=== PATIENT | female | born 1985 | race Caucasian/White ===

== ENCOUNTER 2020-08-08 08:36 | Outpatient (CLI) | payer OTHER, SELFPAY ==
--- NOTE | ~2020-08-08 | MM_ITS ---
EXAMINATION: MM screening dusty BI w nubia HISTORY: Screening mammogram TECHNIQUE: Craniocaudal and mediolateral oblique 3-D tomosynthesis images were obtained and synthetic 2-D images were generated. CAD analysis was submitted and interpreted. COMPARISON: No prior mammogram is available for comparison at this institution. BREAST PARENCHYMAL COMPOSITION: There are scattered areas of fibroglandular density. FINDINGS: There are right breast asymmetries including a cluster of opacities measuring up to 12 mm i n the posterior aspect of the lower inner quadrant of the right breast. There is an asymmetric approx imately 6 mm circumscribed opacity in the right axillary area. There is a 3 mm circumscribed density in the upper outer quadrant of the right breast at mid depth. Diagnostic right mammogram and right breast ultrasound examination are recommended. There is asymmetry in the posterior inner left breast. Diagnostic left mammogram is recommended, with ultrasound if required. IMPRESSION: 1. Bilateral mammographic asymmetries 2. Bilateral diagnostic mammography and right breast ultrasound examination are recommended, with lef t breast ultrasound if required BI-RADS Category 0: Incomplete: Needs additional imaging evaluation. Reviewed, dictated and finalized at location A. IMPRESSION: 1. Bilateral mammographic asymmetries 2. Bilateral diagnostic mammography and right breast ultrasound examination are recommended, with left breast ultrasound if required BI-RADS Category 0: Incomplete: Needs additional imaging evaluation.
== END 2020-08-08 08:37 | disposition home or self-care (01) ==
PROVIDERS: Visit Provider Surgery Plastic and Reconstructive Surgery
DX: Z12.31 Encounter for screening mammogram for malignant neoplasm of breast (principal); R92.8 Other abnormal and inconclusive findings on diagnostic imaging of breast
CPT/HCPCS: 77063; 77067

== ENCOUNTER 2020-08-10 10:32 | Outpatient (CLI) | payer OTHER, SELFPAY ==
--- NOTE | ~2020-08-10 | MMUS_ITS ---
EXAMINATION: MM diagnostic mammo BI, US breast LT limited, US breast RT complete HISTORY: Bilateral mammographic asymmetries reported on 08/08/2020 screening mammogram TECHNIQUE: Additional 3-D tomosynthesis images of both breasts were performed and synthetic 2-D image s were generated. CAD analysis was submitted and interpreted. High resolution right complete and left upper inner and lower inner quadrant breast ultrasound was performed. COMPARISON: 08/08/2020 bilateral digital screening mammogram FINDINGS: MAMMOGRAPHIC FINDINGS: No suspicious reproducible mass or architectural distortion is detected. ULTRASOUND: Right breast: There is an approximately 2.2 x 9 mm tubular sonolucency and adjacent 2.2 x 4.8 mm cyst at 3:00 11 cm from the nipple. No suspicious solid lesion or shadowing or suspicious vascularity of the right breast is detected. Left breast: No suspicious mass or shadowing is detected. IMPRESSION: 1. No mammographic evidence of malignancy 2. Routine mammographic screening is recommended. BI-RADS Category 2: Benign finding(s). Reviewed, dictated and finalized at location A. IMPRESSION: 1. No mammographic evidence of malignancy 2. Routine mammographic screening is recommended. BI-RADS Category 2: Benign finding(s). IMPRESSION: 1. No mammographic evidence of malignancy 2. Routine mammographic screening is recommended. BI-RADS Category 2: Benign finding(s).
== END 2020-08-10 10:33 | disposition home or self-care (01) ==
PROVIDERS: Visit Provider Surgery Plastic and Reconstructive Surgery
DX: R92.8 Other abnormal and inconclusive findings on diagnostic imaging of breast (principal)
CPT/HCPCS: 76641; 76642; 77066

== ENCOUNTER 2020-08-15 01:41 | Outpatient (CLI) | payer OTHER, SELFPAY ==
[2020-08-15 19:05] LABS: SARS-CoV-2 RNA PCR Negative
== END 2020-08-15 01:42 | disposition home or self-care (01) ==
LOC: ANHCOVIDDT 01:42
PROVIDERS: Visit Provider Surgery Plastic and Reconstructive Surgery
DX: Z01.812 Encounter for preprocedural laboratory examination (principal); Z20.828 Contact with and (suspected) exposure to other viral communicable diseases
CPT/HCPCS: 87635; C9803; U0003

== ENCOUNTER 2020-08-17 00:29 | Day surgery (SDC) | payer OTHER, SELFPAY ==
[2020-08-03 13:30] VITALS: BMI 32.4
--- NOTE | 2020-08-16 10:33 | WPDANESEPPF ---
Anes - Initial Pre Proc Eval Procedure: Operation Date: 08/17/20 07:30 Proposed Procedures p Bilateral Breast Reduction - Herbert Black MD Date/Time: 08/16/20 10:33 Surgeon: Herbert Black MD Pre Op Diagnosis: Macromastia Patient Data Age: 35 Gender: F Height: 1.65 m Weight: 88.45 kg Allergies Allergy/AdvReac Type Severity Reaction Status Date / Time Sulfa (Sulfonamide Allergy Unknown Rash Verified 08/03/20 13:31 Antibiotics) morphine AdvReac Unknown Itching Verified 08/03/20 13:31 Home Medications Medication Instructions Recorded Confirmed Type fluoxetine 40 mg capsule 40 mg PO DAILY cap 06/05/20 08/03/20 History valacyclovir 500 mg tablet 500 mg PO DAILY tablet 06/05/20 08/03/20 History docusate sodium 100 mg capsule 100 mg PO BID #14 cap 08/02/20 08/03/20 Rx hydrocodone 5 mg-acetaminophen 325 1 tablet PO Q6H PRN #15 tablet 08/02/20 08/03/20 Rx mg tablet ondansetron HCl 4 mg tablet 4 mg PO Q6H PRN #30 tablet 08/02/20 08/03/20 Rx cholecalciferol (vitamin D3) 50 mcg PO DAILY 08/03/20 08/03/20 History [Vitamin D3] Patient hx anesthesia problems: none Family hx anesthesia problems: none PMFSH Past Medical History Medical History (Updated 08/16/20 @ 10:34 by Bala Cochran MD) Anxiety Depression Lung collapse 2010 Obesity Surgical History Surgical History History of appendectomy 2012 Family History Family History Mother Family history of thyroid disease Family history of arthritis Grandparent Family history of blood dyscrasia Hypertension Acute myocardial infarction Cerebrovascular accident Family history of arthritis Family history of Parkinson's disease Family history of congestive heart failure Father Family history of mental disorder Depression Hypertension Family history of arthritis Social History Social History Smoking status: Never smoker Smoking end date: 10/20/08 Alcohol intake: current Spiritual care concerns: No Anes - Eval Final PreProcedure Day of Procedure 08/16/20 10:33 Patient weight: obese Heart: regular rate and rhythm Lungs: clear to auscultation and normal air movement Airway: Mallampati scale class II Neurological: alert and oriented Last oral intake: >/= 8 hours ASA classification: II Emergent: no Anesthetic plan: proceed Anesthesia type and monitoring: general ETT Informed Consent: The patient's anesthetic plan and its attendant risks and benefits were discussed with the patient/family/POA. Questions were solicited and answers provided to the satisfaction of the patient/family/POA.
[2020-08-17] VITALS (10 sets, daily range): BP systolic 112–138; BP diastolic 64–77; PULSE 58–110; RESP 8–20; TEMP 35.9–36.2; O2SAT 96–100
[2020-08-17 06:36] LABS: Urine Cotinine NEGATIVE
[2020-08-17] MEDS: LACTATED RINGERS 1,000 ML 30 ML IV CONT ×2 (06:45→10:09)
--- NOTE | 2020-08-17 06:59 | WPDHPUPDATE1 ---
History and Physical Update Update Date/Time: 08/17/20 06:59 History and Physical has been reviewed, including an updated exam of the patient. There are NO changes in the patient's condition. Risks, benefits, and alternatives have been discussed and questions answered. Patient agrees to proceed with procedure.
[2020-08-17] MEDS: ceFAZolin 2 GM/D5W 50 ML 2 GM/50 ML BAG IVPB (07:26)
--- NOTE | 2020-08-17 09:59 | PM.PROC ---
Procedure Note - Detailed Date of procedure: 08/17/20 Pre-op diagnosis: Macromastia Post-op diagnosis: same Procedure performed: Bilateral breast reduction Description of procedure: She is here today for bilateral breast reduction. Previously and again today the risks, benefits, alternatives were discussed in extensive detail. I wanted her to be very realistic about the risks involved as well as expectations. We discussed aftercare and what to monitor for. She understands we can never guarantee final breast size and there will always be asymmetry. I was very upfront and honest about the risks of sensation change and even nipple loss (). Made sure answered all of her questions to her satisfaction today and consent was obtained. She was marked in the preoperative holding area with their verification. The patient was taken to the operating room placed supine on the operating table. Anesthesia was provided by anesthesiology. She was prepped and draped in a standard sterile fashion. A surgical time-out was taken. Stab incisions were made and I tumessed with a tumescent solution. I marked out the nipple-areolar complex at 42 mm. I then de-epithelialized the pedicle. The pedicle was well left well more than 2 cm in thickness. I then removed the inferior portion of the breast as well as the central keel to get shape based on preoperative planning. At this point copiously irrigated with saline solution and verified a strict hemostasis. I reapproximated the pillars using a 2-0 PDS as well as along the IMF. I tailor tacked the breast into place with valerie. She was placed in a sitting position. I verified the nipple-areolar complex position based on preoperative markings, intraoperative measurements, and observation which were in full agreement. This nipple-areolar complex was marked at 42 mm in size. I then placed supine and de-epithelialized this. Nipple-areolar complex was inset with 3-0 Monocryl. I closed the vertical incision with 3-0 Monocryl in the IMF with 3-0 stratafix. Then everything was closed using a running subcuticular 4-0 Monocryl followed by Steri-Strips. A dressing was placed followed by surgical bra. Patient was awoke and taken to PACU without difficulty. All instrument sponge counts were correct at the end of the case. Anesthesia: GLMA Surgeon: Herbert Black MD Estimated blood loss (mL): 20 Drains: No Packing: No Pathology: yes (Bilateral breast tissue) Complications: No immediate complications Condition: stable Disposition: PACU Findings: Inverted T Superior medial pedicle Tissue removed: Right - 1024.1 grams Left - 1029 grams
[2020-08-17] MEDS: ONDANSETRON INJ 4 MG/2 ML VIAL IV PUSH (10:18)
[2020-08-17] MEDS: diphenhydrAMINE HCl INJ 50 MG/ML VIAL 12.5 MG IV PUSH (10:32)
--- NOTE | 2020-08-17 10:35 | SUR.PHASEI ---
1033; DR MEEHAN AT BEDSIDE. PT C/O NAUSEA. SCOPE PATCH AND HALDOL ORDERED.
[2020-08-17] MEDS: SCOPOLAMINE 1.5 MG PATCH TRANSDERM (10:37)
[2020-08-17] MEDS: HALOPERIDOL LACTATE 5 MG/ML VIAL 1 MG IV PUSH (10:47)
--- NOTE | 2020-08-17 10:49 | SUR.PHASEI ---
1035; PT DROWSY, SAO2 DROPS BRIEFLY TO 85% ON ROOM AIR. RESP EVEN UNLABORED. O2 2L NC APPLIED. PT STILL C/O EXTREME NAUSEA.
--- NOTE | 2020-08-17 10:58 | SUR.PHASEI ---
PT AWAKE AND ALERT. STATES PAIN MODERATE AND TOLERABLE AT 5/10. STATES NAUSEA IS IMPROVING. SHE DOES NOT WANT ANY PAIN MEDICINE AT THIS TIME DUE TO CONCERN FOR NAUSEA. PT TALKATIVE AND EATING ICE CHIPS SPARINGLY.
--- NOTE | 2020-08-17 11:03 | SUR.PHASEI ---
REPORT GIVEN TO AMBIKA SOTO RN
--- NOTE | 2020-08-17 11:15 | SUR.PHASEI ---
O2 DISCONTINUED, WILL CONTINUE TO MONITOR PT.
[2020-08-17] MEDS: oxyCODONE HCL (*CRX) 5 MG TAB IR PO (12:03)
--- NOTE | 2020-08-17 13:43 | SUR.PHASEII ---
[address] meraz about small amount bloody drainage to surgical bra at nipple site,states may place gauze to site and change surgical bra.
== END 2020-08-17 13:09 | disposition home or self-care (01) ==
PROVIDERS: PCP Internal Medicine; Visit Provider Surgery Plastic and Reconstructive Surgery
PROC: 0HBV0ZZ Excision of Bilateral Breast, Open Approach (ICD-10-PCS; CPT 19318; principal; 2020-08-17 07:30)
DX: N62 Hypertrophy of breast (principal); N60.32 Fibrosclerosis of left breast; N60.31 Fibrosclerosis of right breast; N60.82 Other benign mammary dysplasias of left breast; N60.81 Other benign mammary dysplasias of right breast; L82.1 Other seborrheic keratosis; F41.8 Other specified anxiety disorders; E66.9 Obesity, unspecified; Z68.34 Body mass index [BMI] 34.0-34.9, adult
CPT/HCPCS: 19318; 80307; 88305; A9270; J0171; J0690; J1200; J1630; J2250; J2405; J2704; J3010; J7120

== ENCOUNTER 2020-11-24 16:07 | Emergency (ER) | payer OTHER, SELFPAY ==
--- NOTE | 2020-11-24 16:19 | ED.WOUNDLAC ---
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 Patient states she was lifting a ceramic pot that broke. She complains of mild pain and bleeding from a ~2 cm laceration of the ring finger that is longitudinal & parallel beside the lateral/radial aspect of the fingernail. No numbness, foreign body, nailbed involvement , weakness, decreased range of motion or strength; symptoms are mild better with rest elevation and compression Related Data Home Medications Medication Instructions Recorded Confirmed fluoxetine 40 mg capsule 40 mg PO DAILY cap 06/05/20 08/17/20 valacyclovir 500 mg tablet 500 mg PO DAILY tablet 06/05/20 08/17/20 cholecalciferol (vitamin D3) 50 mcg PO DAILY 08/03/20 08/17/20 [Vitamin D3] Allergies Allergy/AdvReac Type Severity Reaction Status Date / Time Sulfa (Sulfonamide Allergy Unknown Rash Verified 09/25/20 11:03 Antibiotics) morphine AdvReac Unknown Itching Verified 09/25/20 11:03 Review of Systems Review of Systems: Narrative: General/Constitutional: No weight loss,fever Eyes: N0: Redness,discharge Ears/Nose/Throat: No: Epistaxis,ear discharge Respiratory: Denies: Hemoptysis Skin: No Lumps, eruption Neurologic: No Focal Weakness,Sz Hematologic: Denies: Petechiae/Purpura Psychiatric: No: Suicida ideationl All Other Systems: Reviewed and Negative [facility] Past Medical History Medical History Anxiety Depression Lung collapse 2011 Obesity Surgical History Surgical History History of appendectomy 2012 Family History Family History Mother Family history of thyroid disease Family history of arthritis Grandparent Family history of blood dyscrasia Hypertension Acute myocardial infarction Cerebrovascular accident Family history of arthritis Family history of Parkinson's disease Family history of congestive heart failure Father Family history of mental disorder Depression Hypertension Family history of arthritis Social History Social History Smoking status: Never smoker Smoking end date: 10/20/08 Alcohol intake: current Spiritual care concerns: No Comments At time of signature, agree with nursing past medical, surgical, social and family history. There is no relevant family history pertinent to the presenting complaint Exam Narrative: Exam Narrative: General Appearance: Well appearing, conjunctiva clear Mouth/Throat: Normal appearing, Normal lips, Supple Respiratory: Airway patent, No respiratory distress MS-finger: Normal strength (mostly intact, limited flexion/extension by pain), Tenderness (radially/laterally, with mild decreased ROM), no swelling , Other (no anterior drawer, no collateral laxity, ) Skin: 2.25 cm oblique/almost linear, superficial dermal laceration paralleling the fingernail ;warm, Dry, Normal color Neurological: Sensation intact to light touch, A&O x3, normal affect Course Vital Signs Vital signs: Vital Signs Temperature 97.8 F 11/24/20 16:20 Pulse Rate 76 11/24/20 16:20 Respiratory Rate 16 11/24/20 16:20 Blood Pressure 122/72 11/24/20 16:20 Pulse Oximetry 100 11/24/20 16:20 Temperature 97.8 F 11/24/20 16:20 Pulse Rate 76 11/24/20 16:20 Respiratory Rate 16 11/24/20 16:20 Blood Pressure 122/72 11/24/20 16:20 Pulse Oximetry 100 11/24/20 16:20 Procedures Laceration Laceration 1: Date: 11/24/20 Site: hand (Left ring finger) Side (If applicable): left Size (cm): 2.25
[2020-11-24 16:20] VITALS: BP 122/72; PULSE 76; RESP 16; TEMP 36.6; O2SAT 100
== END 2020-11-24 17:07 | disposition home or self-care (01) ==
PROVIDERS: Emergency Provider Emergency Medicine; PCP Internal Medicine
DX: S61.215A Laceration without foreign body of left ring finger without damage to nail, initial encounter (principal); W45.8XXA Other foreign body or object entering through skin, initial encounter; F41.9 Anxiety disorder, unspecified; F32.9 Major depressive disorder, single episode, unspecified
CPT/HCPCS: 12001; 99213; G0463

== ENCOUNTER 2022-12-16 08:38 | Emergency (ER) | payer OTHER, SELFPAY ==
--- NOTE | 2022-12-16 08:52 | ED.URI ---
HPI - URI/Sore Throat General Chief Complaint: Upper Respiratory Infection Stated Complaint: sore throat, ear pain Time Seen by Provider: 12/16/22 09:44 Source: patient and RN notes reviewed Mode of arrival: ambulatory Limitations: no limitations History of Present Illness HPI Narrative: 37-year-old female presents concern for sore throat ear pain. Reports sore throat started on Friday, ear pain started yesterday. She reports taking Mucinex without relief. She denies nasal congestion, rhinorrhea, fever, aches, chills, sweats. She denies known sick contacts. MD elicited complaint: sore throat Related Data Home Medications Medication Instructions Recorded Confirmed valacyclovir 500 mg tablet 500 mg PO PRN PRN Skin Irritation 06/05/20 12/16/22 naltrexone 50 mg tablet 1.5 mg PO HS 12/16/22 12/16/22 Allergies Allergy/AdvReac Type Severity Reaction Status Date / Time Sulfa (Sulfonamide Allergy Unknown Rash Verified 12/16/22 09:12 Antibiotics) morphine AdvReac Unknown Itching Verified 12/16/22 09:12 Review of Systems Review of Systems: CONSTITUTIONAL: Denies malaise, chills, sweats, or fever. EYES: Denies visual changes, redness, or discharge. ENT: Denies rhinorrhea, congestion, sinus pain. Reports otalgia and sore throat. CARDIOVASCULAR: Denies chest pain, palpitations, or edema. RESPIRATORY: Denies cough. Denies dyspnea. GASTROINTESTINAL: Denies abdominal pain, nausea, vomiting, diarrhea SKIN: Denies rash or itching. MUSCULOSKELETAL: Denies myalgia. NEUROLOGIC: Denies headache. All systems reviewed & are unremarkable except as noted in HPI and below PMFSH Past Medical History Medical History Anxiety Depression Lung collapse 2010 Obesity Surgical History Surgical History History of appendectomy 2012 Family History Family History Mother Family history of thyroid disease Family history of arthritis Grandparent Family history of blood dyscrasia Hypertension Acute myocardial infarction Cerebrovascular accident Family history of arthritis Family history of Parkinson's disease Family history of congestive heart failure Father Family history of mental disorder Depression Hypertension Family history of arthritis Social History Social History Smoking status: Never smoker Smoking end date: 10/20/08 Alcohol intake: current Spiritual care concerns: No Comments At time of signature, agree with nursing past medical, surgical, social and family history. There is no relevant family history pertinent to the presenting complaint Exam Narrative: GENERAL: Well-appearing, well-nourished, and in no acute distress. HEAD: Normocephalic EYES: PERRLA, conjunctivae clear ENT: Nares clear. Mucous membranes moist. TM erythematous and bulging bilaterally; no tragal tenderness. Oropharynx not erythematous without lesions. Tonsils not enlarged and without exudate, no drooling, no hoarseness, no trismus, uvula midline. NECK: Supple. No lymphadenopathy CHEST: Clear to auscultation, breath sounds equal. No wheezing, rhonchi, rales, or stridor. No respiratory distress, speaks in full sentences. HEART: Regular rate and rhythm. No murmur heard. SKIN: Warm, dry, no rash. NEURO: Alert and oriented x3. PSYCH: Normal mood and affect Course Course Emergency Course: Patient is aware of diagnosis, understands and agrees to treatment plan. Anticipatory guidance given. Patient agrees to follow-up as directed and is aware of reasons to seek care at the emergency department. Portions of this record may have been created with voice recognition software Level of Care: Express Care Visit Vital Signs Vital signs: Reviewed. MDM - URI/Sore Throat MDM Narrative Medical d
[2022-12-16 09:05] VITALS: BP 120/83; PULSE 94; RESP 16; TEMP 36.4; O2SAT 99
== END 2022-12-16 09:53 | disposition home or self-care (01) ==
PROVIDERS: Emergency Provider Nurse Practitioner; PCP Internal Medicine
DX: H66.90 Otitis media, unspecified, unspecified ear (principal)
CPT/HCPCS: 87081; 87880; 99213; G0463

== ENCOUNTER 2023-02-21 13:13 | Outpatient (CLI) | payer OTHER, SELFPAY ==
--- NOTE | ~2023-02-21 | MMUS_ITS ---
EXAMINATION: MM diagnostic dusty BI w nubia, US breast RT limited HISTORY: Palpable lump of the lower inner right breast. Interval reduction mammoplasty. TECHNIQUE: Craniocaudal, mediolateral, and mediolateral oblique 3-D tomosynthesis images of the breas ts were performed and synthetic 2-D images were generated. CAD analysis was submitted and interpreted . High resolution limited right breast ultrasound was performed. COMPARISON: 08/10/2020, 08/08/2020 BREAST PARENCHYMAL COMPOSITION: There are scattered areas of fibroglandular density. FINDINGS: MAMMOGRAPHIC FINDINGS: There are changes of interval reduction mammoplasty. No suspicious mass, calcification, or architectu ral distortion are identified in either breast to suggest malignancy. There has been no suspicious in terval change. Dystrophic calcifications related to interval surgery are noted in the central right b reast. In the area of palpable abnormality of the right breast, there is a stable focal asymmetry. ULTRASOUND: There appear to be stable cysts and mildly dilated ducts in the right breast in the area of clinical concern. No suspicious cystic or solid mass is identified. There has been no suspicious interval salvador ge. IMPRESSION: 1. No mammographic or sonographic evidence of malignancy. 2. Recommend routine screening mammography in one year. BI-RADS Category 2: Benign finding(s). Reviewed, dictated and finalized at location A. IMPRESSION: 1. No mammographic or sonographic evidence of malignancy. 2. Recommend routine screening mammography in one year. BI-RADS Category 2: Benign finding(s).
== END 2023-02-21 13:14 | disposition home or self-care (01) ==
LOC: ANHIMG 13:16
PROVIDERS: PCP Internal Medicine; Visit Provider Obstetrics & Gynecology
DX: N63.10 Unspecified lump in the right breast, unspecified quadrant (principal); R92.2 Inconclusive mammogram
CPT/HCPCS: 76642; 77062; 77066; G0279

== ENCOUNTER 2023-06-13 09:52 | Emergency (ER) | payer OTHER, SELFPAY ==
[2023-06-13 10:08] VITALS: BP 119/71; PULSE 65; RESP 16; TEMP 36.5; O2SAT 100
--- NOTE | 2023-06-13 10:13 | ED.URI ---
HPI - URI/Sore Throat General Chief Complaint: Upper Respiratory Infection Stated Complaint: Congestion;Earache;Red eye Time Seen by Provider: 06/13/23 10:18 Source: patient and RN notes reviewed Mode of arrival: ambulatory Limitations: no limitations History of Present Illness HPI Narrative: 38-year-old female presents concern for one-week history of sinus congestion, ear pain pressure. She reports body aches. She denies fever. She reports yesterday she started having right eye redness, slight drainage, a feeling of pressure. She denies taking an [id number] medications for her symptoms. MD elicited complaint: cough and sore throat Related Data Home Medications Medication Instructions Recorded Confirmed valacyclovir 500 mg tablet 500 mg PO PRN PRN Skin Irritation 06/05/20 06/13/23 Allergies Allergy/AdvReac Type Severity Reaction Status Date / Time Sulfa (Sulfonamide Allergy Unknown Rash Verified 12/16/22 09:12 Antibiotics) morphine AdvReac Unknown Itching Verified 12/16/22 09:12 Review of Systems Review of Systems: CONSTITUTIONAL: Denies malaise, chills, sweats, or fever. EYES: Denies visual changes reports right eye pressure, redness, or discharge. ENT: Reports rhinorrhea, congestion, otalgia. Denies sore throat. CARDIOVASCULAR: Denies chest pain, palpitations, or edema. RESPIRATORY: Denies cough. Denies dyspnea. GASTROINTESTINAL: Denies abdominal pain, nausea, vomiting, diarrhea SKIN: Denies rash or itching. MUSCULOSKELETAL: Reports myalgia. NEUROLOGIC: Denies headache. All systems reviewed & are unremarkable except as noted in HPI and below PMFSH Past Medical History Medical History Anxiety Depression Lung collapse 2011 Obesity Surgical History Surgical History History of appendectomy 2012 Family History Family History Mother Family history of thyroid disease Family history of arthritis Grandparent Family history of blood dyscrasia Hypertension Acute myocardial infarction Cerebrovascular accident Family history of arthritis Family history of Parkinson's disease Family history of congestive heart failure Father Family history of mental disorder Depression Hypertension Family history of arthritis Social History Social History Smoking status: Never smoker Smoking end date: 10/20/08 Alcohol intake: current Spiritual care concerns: No Comments At time of signature, agree with nursing past medical, surgical, social and family history. There is no relevant family history pertinent to the presenting complaint Exam Narrative: GENERAL: Well-appearing, well-nourished, and in no acute distress. HEAD: Normocephalic EYES: PERRLA, sclera and conjunctivae mildly injected without drainage noted ENT: Nares clear, turbinates edematous and erythematous, sinus tenderness. Mucous membranes moist. TM pearly dumas with dull light reflex bilaterally; no tragal tenderness. Oropharynx not erythematous without lesions. Tonsils not enlarged and without exudate, no drooling, no hoarseness, no trismus, uvula midline. NECK: Supple. No lymphadenopathy CHEST: Clear to auscultation, breath sounds equal. No wheezing, rhonchi, rales, or stridor. No respiratory distress, speaks in full sentences. HEART: Regular rate and rhythm. No murmur heard. SKIN: Warm, dry, no rash. NEURO: Alert and oriented x3. PSYCH: Normal mood and affect Course Course Emergency Course: Patient is aware of diagnosis, understands and agrees to treatment plan. Anticipatory guidance given. Patient agrees to follow-up as directed and is aware of reasons to seek care at the emergency department. Portions of this record may have been created with voice recognition softwar
== END 2023-06-13 10:33 | disposition home or self-care (01) ==
PROVIDERS: Emergency Provider Nurse Practitioner
DX: J01.90 Acute sinusitis, unspecified (principal); H10.9 Unspecified conjunctivitis; Z87.891 Personal history of nicotine dependence; E66.9 Obesity, unspecified; Z68.27 Body mass index [BMI] 27.0-27.9, adult
CPT/HCPCS: 99213; G0463

== ENCOUNTER 2024-04-13 12:22 | Emergency (ER) | payer OTHER, SELFPAY ==
[2024-04-13 12:37] VITALS: BP 116/76; PULSE 74
[2024-04-13 12:38] VITALS: BP 108/78; BP 117/78; BP 121/74; PULSE 74; PULSE 77; PULSE 90; RESP 20; TEMP 36.9; O2SAT 99
--- NOTE | 2024-04-13 12:38 | ED.GENADULT ---
HPI - General Adult General Chief complaint: Nausea/Vomiting/Diarrhea Stated complaint: VOMITING/BURNING/DIZZY Time Seen by Provider: 04/13/24 12:38 Source: patient and RN notes reviewed Mode of arrival: ambulatory Limitations: no limitations History of Present Illness HPI narrative: 38 y/o female presented for c/o nausea, vomiting and dizziness. Onset 3 days. States she started with dizziness after vomiting for 16 hours. Has been vomiting every other day since then, the dizziness has been constant. Endorses heartburn for which she is taking carafate as prescribed but denies relief. Also took Zofran without relief. Endorses occasional room spinning sensation, lightheadedness, unsteady gait, decreased appetite, and weakness. denies headache, vision changes, fever, hematemesis. No marijuana use. Related Data Home Medications Medication Instructions Recorded Confirmed valacyclovir 500 mg tablet 500 mg PO PRN PRN Skin Irritation 06/05/20 06/13/23 Allergies Allergy/AdvReac Type Severity Reaction Status Date / Time Sulfa (Sulfonamide Allergy Unknown Rash Verified 12/16/22 09:12 Antibiotics) morphine AdvReac Unknown Itching Verified 12/16/22 09:12 Review of Systems Review of Systems: CONSTITUTIONAL: Denies body aches, fever, chills, or sweats. EYES: Denies visual changes, redness, or discharge. ENT: Denies rhinorrhea, congestion, sore throat, or otalgia. CARDIOVASCULAR: Denies chest pain, palpitations, or edema. RESPIRATORY: Denies cough or dyspnea. GASTROINTESTINAL: Denies abdominal pain, reports nausea, vomiting SKIN: Denies rash, itching, or wounds. MUSCULOSKELETAL: Denies back pain, joint pain, or myalgia. NEUROLOGIC: Endorses dizziness denies headache, numbness, tingling, or weakness All systems reviewed & are unremarkable except as noted in HPI and below PMFSH Past Medical History Medical History Anxiety Depression Lung collapse 2010 Obesity Surgical History Surgical History History of appendectomy 2012 Family History Family History Mother Family history of thyroid disease Family history of arthritis Grandparent Family history of blood dyscrasia Hypertension Acute myocardial infarction Cerebrovascular accident Family history of arthritis Family history of Parkinson's disease Family history of congestive heart failure Father Family history of mental disorder Depression Hypertension Family history of arthritis Social History Social History Smoking status: Never smoker Smoking end date: 10/20/08 Alcohol intake: current Spiritual care concerns: No Comments At time of signature, I have reviewed and agree with nursing past medical, surgical, social and family history unless otherwise noted. Please see nursing chart for further information. There is no relevant family history pertinent to the presenting complaint Exam Narrative: GENERAL: mildly ill-appearing; nontoxic EYES: PERRLA, EOMI. ENT: Mucous membranes pink and moist. CHEST: No respiratory distress. Clear to auscultation. HEART: Regular rate and rhythm. No murmur appreciated. Normal peripheral pulses. ABDOMEN: Soft, tender to epigastric area, nondistended, normal active bowel sounds. SKIN: Warm, dry, no rash. Capillary refill normal. Normal skin turgor. NEURO:No focal deficits. Alert and oriented x3. Finger to nose intact bilaterally. EOMs intact without nystagmus. No facial droop/asymmetry noted bilaterally. Grimace intact. Intact sensation in face. Hearing intact bilaterally. Shoulder shrug intact. Strength 5/5 bilateral upper extremities. Strength 5/5 bilateral lower extremities. Ambulatory exam with a normal based, steady gait. PSYCH: Normal affect. Course Course
[2024-04-13] MEDS: FAMOTIDINE 20 MG TABLET 40 MG PO (12:57)
== END 2024-04-13 13:06 | disposition short-term general hospital (02) ==
PROVIDERS: Emergency Provider Nurse Practitioner Family
DX: R11.10 Vomiting, unspecified (principal); Z87.891 Personal history of nicotine dependence; E66.9 Obesity, unspecified; Z68.26 Body mass index [BMI] 26.0-26.9, adult
CPT/HCPCS: 99213; A9270; G0463

== ENCOUNTER 2024-04-23 07:13 | Outpatient (CLI) | payer OTHER, SELFPAY ==
--- NOTE | ~2024-04-23 | MM_ITS ---
EXAMINATION: MM screening [facility] BI w nubia HISTORY: Screening mammogram TECHNIQUE: Craniocaudal and mediolateral oblique 3-D tomosynthesis images were obtained and synthetic 2-D images were generated. CAD analysis was submitted and interpreted. COMPARISON: 02/21/2023, 08/08/2020 BREAST PARENCHYMAL COMPOSITION:Not Dense. There are scattered areas of fibroglandular density. FINDINGS: Stable lobulated mass at the lower, inner right breast. No suspicious mass, calcification, or architectural distortion are identified in either breast to suggest malignancy. There has been no suspicious interval change. IMPRESSION: No mammographic evidence of malignancy. Recommend routine screening mammography in one year. BI-RADS Category 2: Benign finding(s). Reviewed, dictated and finalized at location .
== END 2024-04-23 07:14 | disposition home or self-care (01) ==
LOC: ANHIMG 07:15
PROVIDERS: PCP Obstetrics & Gynecology; Visit Provider Obstetrics & Gynecology
DX: Z12.31 Encounter for screening mammogram for malignant neoplasm of breast (principal)
CPT/HCPCS: 77063; 77067

== ENCOUNTER 2024-12-29 08:05 | Emergency (ER) | payer OTHER, SELFPAY ==
[2024-12-29 08:17] VITALS: BP 119/80; PULSE 73; RESP 16; TEMP 37.3; O2SAT 100
--- NOTE | 2024-12-29 08:17 | ED_ITS ---
HPI - Nausea/Vomiting/Diarrhea General Chief complaint: Nausea/Vomiting/Diarrhea Stated complaint: Vomiting Time Seen by Provider: 12/29/24 08:20 Source: patient and RN notes reviewed Mode of arrival: ambulatory Limitations: no limitations History of Present Illness HPI Narrative: 39-year-old female presents with concern for nausea and vomiting that started on Friday. She reports she has had a history of similar symptoms over the past 6 months, she has been in the ER in seen GI and was diagnosed with nonerosive GERD. She reports she has been having heartburn with the symptoms as well. She normally takes sucralfate but she has not taken it since Friday. She took a Zofran tablet several hours ago but she vomited it up right away. She reports chills and sweats when she is vomiting. MD elicited complaint: nausea and vomiting Related Data Home Medications ?Medication ?Instructions ?Recorded ?Confirmed ?Last Taken ?Type amitriptyline 10 mg tablet mg 12/29/24 Unknown History fluoxetine 20 mg capsule mg 12/29/24 Unknown History sucralfate 1 gram tablet 12/29/24 Unknown History Allergies Allergy/AdvReac Type Severity Reaction Status Date / Time Sulfa (Sulfonamide Allergy Unknown Rash Verified 12/16/22 09:12 Antibiotics) morphine AdvReac Unknown Itching Verified 12/16/22 09:12 Review of Systems Review of Systems: CONSTITUTIONAL: Denies malaise, fever. Reports chills and sweats ENT: Denies rhinorrhea, congestion, sinus pain, otalgia or sore throat. CARDIOVASCULAR: Denies chest pain, palpitations, or edema. RESPIRATORY: Denies cough or dyspnea. GASTROINTESTINAL: Denies abdominal pain, diarrhea, bloody, or mucous stools. Reports heartburn, nausea, vomiting GENITOURINARY: Denies dysuria or hematuria. MUSCULOSKELETAL: Denies myalgia. NEUROLOGIC: Denies headache. All systems reviewed & are unremarkable except as noted in HPI and below PMFSH Past Medical History Medical History Anxiety Depression Lung collapse 2010 Obesity Surgical History Surgical History History of appendectomy 2012 Family History Family History Mother Family history of thyroid disease Family history of arthritis Grandparent Family history of blood dyscrasia Hypertension Acute myocardial infarction Cerebrovascular accident Family history of arthritis Family history of Parkinson's disease Family history of congestive heart failure Father Family history of mental disorder Depression Hypertension Family history of arthritis Social History Social History Smoking status: Never smoker Smoking end date: 10/20/08 Alcohol intake: current Spiritual care concerns: No Comments At time of signature, agree with nursing past medical, surgical, social and family history. There is no relevant family history pertinent to the presenting complaint Exam Narrative: GENERAL: Nontoxic-appearing, well-nourished, and in no acute distress. HEAD: Normocephalic, atraumatic. EYES: PERRLA, conjunctivae clear, and EOMI. ENT: Nares clear. Mucous membranes moist. NECK: Supple. No lymphadenopathy CHEST: Speaks in full sentences. No respiratory distress. HEART: Regular rate and rhythm. ABDOMEN: Soft, nondistended, epigastric tenderness. No guarding or rigidity. Bowel sounds present in all four quadrants. No Supra public tenderness or distension. \ SKIN: Warm, dry, no rash. NEURO: Alert and oriented x3. PSYCH: Normal mood and affect Course Course Emergency Course: Patient is aware of, understands and agrees to be transferred to the emergency room. Anticipatory guidance given. Patient agrees to proceed directly to the emergency department. Portions of this record may have been created with voice recognition software Level of Care: Express Care Visit Vital Signs Vital signs: Reviewed. Transfer Transfered to: [place] Transportation: Other (private vehicle) Transfer rationale: Abdominal pain, nausea, vomiting Accepting physician: Lashon MDM - Nausea/Vomiting/Diarrhea [facility] Narrative Medical decision making narrative: Patient is nontoxic appearing and in no acute distress. Patient was given ODT Zofran, 15 minutes later given a GI cocktail. She reports only very mild improvement in nausea and epigastric pain. Patient would like to go to the emergency room for further evaluation. Critical Care Time Critical Care Time Critical Care Time: No Discharge Plan Discharge Clinical Impression: Abdominal pain Patient Disposition: Acute Care Hospital Condition: Stable Patient Language: Albanian Prescriptions: No Action sucralfate 1 gram tablet amitriptyline 10 mg tablet fluoxetine 20 mg capsule Follow-up/Referrals: Brooklynn,Celestina Cannon, PEDIATRICS HOSPITALIST [Primary Care Provider] - Time of Disposition: 09:16
[2024-12-29] MEDS: ONDANSETRON HCL ODT 4 MG TABLET SUBLINGUAL (08:30)
[2024-12-29] MEDS: LIDOCAINE 2% VISC SOLN 15 ML UDC PO (08:55)
[2024-12-29] MEDS: MAG HYDROX/AL HYDROX/SIMETH 30 ML UDC 15 ML PO (08:55)
== END 2024-12-29 09:20 | disposition short-term general hospital (02) ==
PROVIDERS: Emergency Provider Nurse Practitioner; PCP Nurse Practitioner Family
DX: R10.13 Epigastric pain (principal); K21.9 Gastro-esophageal reflux disease without esophagitis; E66.9 Obesity, unspecified; Z68.26 Body mass index [BMI] 26.0-26.9, adult; Z87.891 Personal history of nicotine dependence
CPT/HCPCS: 99213; A9270; G0463

== ENCOUNTER 2024-12-29 09:30 | Emergency (ER) | payer OTHER, SELFPAY ==
[2024-12-29] VITALS (21 sets, daily range): BP systolic 99–125; BP diastolic 57–80; PULSE 60–112; RESP 10–20; TEMP 36.7–36.8; O2SAT 92–100
--- NOTE | ~2024-12-29 | CT_ITS ---
EXAMINATION: CT abdomen pelvis w con DATE: 12/29/2024 11:28 INDICATION: Epigastric abdominal pain. Nausea and vomiting. TECHNIQUE: Computed tomography (CT) of the abdomen and pelvis was performed with 100 mL Omnipaque 350 intravenous contrast. Automated exposure control and iterative reconstruction technique were employe d. The dose-length product was 363.35 mGy-cm. COMPARISON: None. FINDINGS: The visualized portions of the lung bases demonstrate calcified left lung nodules and calci fied left hilar lymph nodes, consistent with old granulomatous disease. The heart size is normal. No pericardial effusion. The liver, gallbladder, spleen, pancreas, adrenal glands, and right kidney are normal. There is a 4 mm cyst in left kidney. There is an intrauterine device in expected position. Th ere is diverticulosis of the colon without evidence of diverticulitis. There are no dilated loops of bowel. The appendix is not visualized. There are no pathologically enlarged lymph nodes. There is no free intraperitoneal fluid. There is mild thoracic spondylosis. There is moderate lower lumbar spondy losis. IMPRESSION: 1. No etiology for the patient's symptoms. Reviewed, dictated and finalized at location B.
--- NOTE | 2024-12-29 09:48 | ECG_ITS ---
Test Date: 2024-12-29 09:57:06 Measurements Intervals [place] Rate: 66 P: 55 VA: 147 QRS: 87 QRSD: 98 T: 36 QT: 409 QTc: 430 Interpretive Statements SINUS RHYTHM No previous ECG available for comparison Electronically Signed On 12-29-2024 13:43:52 CDT by Royce Davis M.D.
[2024-12-29 10:12] LABS: Basophils Percent Auto 0.2 % (0.2-1.2); Eosinophils Percent Auto 0.1 % (0-4.4); Hemoglobin 14.1 g/dL (12.0-15.0); Immature Granulocyte Absolute 0.04 K/mm3 (0.00-0.031); Immature Granulocyte Percent A 0.3 % (0-0.5); Lymphocytes Absolute Auto 1.33 K/mm3 (0.9-3.2); Lymphocytes Percent Auto 10.7 % (18.3-44.2); Mean Corpuscular HGB Conc 34.4 g/dl (32-36); Mean Corpuscular Hemoglobin 30.9 pg (26-34); Mean Corpuscular Volume 89.9 fl (80-100); Mean Platelet Volume 11.4 fl (7.4-10.4); Monocytes Absolute Auto 0.8 K/mm3 (0.1-0.6); Monocytes Percent Auto 6.7 % (2.6-8.5); Neutrophils Absolute Auto 10.2 K/mm3 (1.3-6.7); Platelet Count Result 405 k/mm3 (150-375); Red Blood Count 4.56 M/mm3 (4.2-5.4); Red Cell Distribution Width 12.8 % (11.5-14.5); White Blood Count 12.4 K/mm3 (4.5-10.0)
--- OUTSIDE RECORDS SUMMARY | 2024-12-29 10:15 | XMS_ITS | Encounter Summary ---
Author Organization [facility] Address [address] [place] [address] Care Team Providers Care Cost Analyst Name Role Phone Charu Batista MD Primary Care Provider + [phone] Lj Jones MD Primary Care Pr Celestina Garcia NP Primary Care Provider + [phone] Encounter Details Date Type Department Care Team (Late st Contact Info) Description 05/02/2021 [employer] Instrument[employer] Message Enc [facility] Medical Group Family & Internal Medicine [facility] [phone] [place] [phone] Charu Batista MD [address] [place] [address] RE: Question Social History Tobacco Use Types Packs/Day Years Used Date Smoking Tobacco: Former Cigarettes Q uit: 2010 Smokeless Tobacco: Never Alcohol Use Standard Drinks/Week Comments Never 0 (1 standard drink = 0.6 oz pur e alcohol) AUDIT-C Answer Date Recorded Frequency of Alcohol Consumption Never 12/27/2019 Average Number of Drinks Not on file 020 Frequency of Binge Drinking Not on file 06/2020 PHQ-2 Answer Date Recorded PHQ-2 Score - If the patient scores above 3, please move on to questions 3-9 0 03/06/2021 Comments No Sex and Gender Information Value Date Recorded Sex Assigned at Not on file Legal Sex Female 7:31 PM CDT Gender Identity Female 11/06/2021 7:23 AM CARD BRUSHER Sexual Orientation Straight 11/06/2021 7: 23 AM CARD BRUSHER documented as of this encounter Progress Notes * Sienna Galdamez MA - 05/03/2021 8:53 AM CDT Please advise documented in this encounter Plan of Treatment Not on file documented as of this encounter Visit Diagnoses Not on filedocumented in this encounter Care Teams Cost Analyst Relationship Specialty Start Date End Date Charu Batista MD PCP - General 06/01/12 01/23/23 Lj Jones MD PCP - General FAMILY PRACTICE 01/24/23 04/25/24 [place] [address] [address] PCP - General Nurse Practitioner Family 04/26/24 documented as of this encounter
--- OUTSIDE RECORDS SUMMARY | 2024-12-29 10:15 | XMS_ITS | Encounter Summary ---
Author Organization [facility] Address [address] [place] [address] Care Team Providers Care Medical Reimbursement Specialist Name Role Phone Charu Batista MD Primary Care Provider + [phone] Lj Jones MD Primary Care Pr Celestina Garcia NP Primary Care Provider + [phone] Encounter Details Date Type Department Care Team (Late st Contact Info) Description 01/04/2021 Mobile Armor Message [facility] [address] [place] [address] [place] [address] [place] [address] RE: Follow Up/Update Social History Tobacco Use Types Packs/Day Years Used Date Smoking Tobacco: Former Cigarettes Q uit: 2009 Smokeless Tobacco: Never Alcohol Use Standard Drinks/Week Comments Never 0 (1 standard drink = 0.6 oz pur e alcohol) AUDIT-C Answer Date Recorded Frequency of Alcohol Consumption Never 12/27/2019 Average Number of Drinks Not on file 020 Frequency of Binge Drinking Not on file 06/2020 PHQ-2 Answer Date Recorded PHQ-2 Score 0 12/27/2019 Comments No Sex and Gender Information Value Date Recorded Sex Assigned at Not on file Legal Sex Female 7:31 PM CDT Gender Identity Female 11/06/2021 7:23 AM ASSEMBLY MACHINE SET UP MECHANIC Sexual Orientation Straight 11/06/2021 7: 23 AM ASSEMBLY MACHINE SET UP MECHANIC documented as of this encounter Plan of Treatment Not on file documented as of this encounter Visit Diagnoses Not on filedocumented in this encounter Care Teams Medical Reimbursement Specialist Relationship Specialty Start Date End Date Charu Batista MD PCP - General 06/01/12 01/23/23 Lj Jones MD PCP - General FAMILY PRACTICE 01/24/23 04/25/24 [place] [address] [place] [address] PCP - General Nurse Practitioner Family 04/26/24 documented as of this encounter
--- OUTSIDE RECORDS SUMMARY | 2024-12-29 10:15 | XMS_ITS | Encounter Summary ---
Author Organization [facility] Address [address] [place] [address] Care Team Providers Care Family Readiness Support Assistant Name Role Phone Celestina Overton NP Primary Care Provider [phone] Encounter Details Date Type Department Care Team (Late st Contact Info) Description 12/29/2024 Post[employer] Message Enc [facility] Medical Group Family & Internal Medicine [facility] [address] [place] [phone] [place] [id number] [place] [address] [place] [address] Refill requested Social History Tobacco Use Types Packs/Day Years Used Date Smoking Tobacco: Former Cigarettes Q uit: 2009 Smokeless Tobacco: Never Alcohol Use Standard Drinks/Week Comments Not Currently 0 (1 standard drink = 0.6 oz pur e alcohol) AUDIT-C Answer Date Recorded Frequency of Alcohol Consumption Never 12/27/2019 Average Number of Drinks Not on file 020 Frequency of Binge Drinking Not on file 06/2020 PHQ-2 Answer Date Recorded Patient Health Questionnaire-2 Score 0 08/20/2024 Comments No Sex and Gender Information Value Date Recorded Sex Assigned at Not on file Legal Sex Female 7:31 PM CDT Gender Identity Female 11/06/2021 7:23 AM COLLEGE ATHLETE Sexual Orientation Straight 11/06/2021 7: 23 AM COLLEGE ATHLETE documented as of this encounter Plan of Treatment Not on file documented as of this encounter Visit Diagnoses Not on filedocumented in this encounter Additional Health Concerns Assessment Noted Time PHQ-9 Depression Total Score: 0 08/20/20 1:41 PM CDT documented as of this encounter Care Teams Family Readiness Support Assistant Relationship Specialty [place] [address] [address] [facility] [address] [place] [id number] PCP - General Nurse Practitioner Family 04/26/24 documented as of this encounter
--- OUTSIDE RECORDS SUMMARY | 2024-12-29 10:15 | XMS_ITS | Encounter Summary ---
Author Organization [facility] [place] Address [address] [place] [address] Care Team Providers Care Structured Cabling Technician Name Role Phone Charu Batista MD Primary Care Provider + [phone] Lj Jones MD Primary Care Pr Celestina Garcia NP Primary Care Provider + [phone] Encounter Details Date Type Department Care Team (Late st Contact Info) Description 01/02/2023 Cerevot Message Enc [facility] Medical Group Family & Internal Medicine [facility] [phone] [place] [phone] Charu Batista MD [address] [place] [address] Antibiotic Social History Tobacco Use Types Packs/Day Years [...] Date Recorded Patient Health Questionnaire-2 Score 0 11/20/2022 Comments No Sex and Gender Information Value Date Recorded Sex Assigned at Not on file Legal Sex Female 7:31 PM CDT Gender Identity Female 11/06/2021 7:23 AM SET KEY DRIVER Sexual Orientation Straight 11/06/2021 7 :23 AM SET KEY DRIVER documented as of this encounter Plan of Treatment Not on file documented as of this encounter Visit Diagnoses Not on filedocumented in this encounter Additional Health Concerns Assessment Noted Time PHQ-9 Depression Total Score: 4 11/20/19 11:21 AM SET KEY DRIVER documented as of this encounter Care Teams Structured Cabling Technician Relationship Specialty Start Date End Date Charu Batista MD PCP - General 06/01/12 01/23/23 Lj Jones MD PCP - General FAMILY PRACTICE 01/24/23 04/25/24 [place] [address] [place] [id number] PCP - General Nurse Practitioner Family 04/26/24 documented as of this encounter
--- OUTSIDE RECORDS SUMMARY | 2024-12-29 10:15 | XMS_ITS | Encounter Summary ---
Author Organization [facility] Address [address] [place] [address] Care Team Providers Care Tripper Name Role Phone Celestina Overton NP Primary Care Provider [phone] Encounter Details Date Type Department Care Team (Late st Contact Info) Description 05/04/2024 MegaHoot Message Enc [facility] Medical Group Family & Internal Medicine [facility] [phone] [place] [phone] [place]est[place]ton [place] [phone] [place] [address] [place] [address] Uti? Social History Tobacco Use Types Packs/Day Years [...] Answer Date Recorded Patient Health Questionnaire-2 Score 2 04/30/2024 Comments No Sex and Gender Information Value Date Recorded Sex Assigned at Not on file Legal Sex Female 7:31 PM CDT Gender Identity Female 11/06/2021 7:23 AM ROD CUP FILLER Sexual Orientation Straight 11/06/2021 7: 23 AM ROD CUP FILLER documented as of this encounter Plan of Treatment Not on file documented as of this encounter Visit Diagnoses Not on filedocumented in this encounter Additional Health Concerns Assessment Noted Time PHQ-9 Depression Total Score: 6 04/30/20 24 11:16 AM CDT documented as of this encounter Care Teams Tripper Relationship Specialty [place] [address] [address] [place] [address] [place] [address] PCP - General Nurse Practitioner Family 04/26/24 documented as of this encounter
--- OUTSIDE RECORDS SUMMARY | 2024-12-29 10:15 | XMS_ITS | Encounter Summary ---
Author Organization [facility] Address [address] [place] [address] Care Team Providers Care Corn Sheller Name Role Phone Celestina Overton NP Primary Care Provider [phone] Encounter Details Date Type Department Care Team (Late st Contact Info) Description 06/22/2024 [employer] Message Enc [facility] Medical Group Family & Internal [facility] [phone] [place] [phone] [place] [address] [facility] [address] [place] [address] Covid positive Social History Tobacco Use Types Packs/Day Years [...] CDT Gender Identity Female 11/06/2021 7:23 AM DIGITAL ACCOUNT EXECUTIVE Sexual Orientation Straight 11/06/2021 7: 23 AM DIGITAL ACCOUNT EXECUTIVE documented as of this encounter Plan of Treatment Not on file documented as of this encounter Visit Diagnoses Not on filedocumented in this encounter Additional Health Concerns Assessment Noted Time PHQ-9 Depression Total Score: 6 04/30/20 24 11:16 AM CDT documented as of this encounter Care Teams Corn Sheller Relationship Specialty [place] [address] [address] [facility] [address]. [place] [id number] PCP - General Nurse Practitioner Family 04/26/24 documented as of this encounter
--- OUTSIDE RECORDS SUMMARY | 2024-12-29 10:15 | XMS_ITS | Encounter Summary ---
Author Organization [facility] Address [address] [place] [address] Care Team Providers Care Fruit Or Nut Farmer Name Role Phone Charu Batista MD Primary Care Provider + [phone] Lj Jones MD Primary Care Pr Celestina Garcia NP Primary Care Provider + [phone] Encounter Details Date Type Department Care Team (Late st Contact Info) Description 06/05/2022 Think2t Message Enc [facility] Medical Group Family & Internal Medicine [facility] [phone] [place] [phone] Charu Batista MD [address] [place] [address] Option for suspected UTI Social History Tobacco Use Types Packs/Day Years [...] CDT Gender Identity Female 11/06/2021 7:23 AM LAND TITLE EXAMINER Sexual Orientation Straight 11/06/2021 7: 23 AM LAND TITLE EXAMINER documented as of this encounter Plan of Treatment Not on file documented as of this encounter Visit Diagnoses Not on filedocumented in this encounter Care Teams Fruit Or Nut Farmer Relationship Specialty Start Date End Date Charu Batista MD PCP - General 06/01/12 01/23/23 Lj Jones MD PCP - General FAMILY PRACTICE 01/24/23 04/25/24 [place] [address] [place] [address] PCP - General Nurse Practitioner Family 04/26/24 documented as of this encounter
--- OUTSIDE RECORDS SUMMARY | 2024-12-29 10:15 | XMS_ITS | Encounter Summary ---
Author Organization [facility] Address [address] [place] [address] Care Team Providers Care Literary Writer Name Role Phone Charu Batista MD Primary Care Provider + [phone] Lj Jones MD Primary Care Pr Celestina Garcia NP Primary Care Provider + [phone] Encounter Details Date Type Department Care Team (Late st Contact Info) Description 10/22/[address] [facility] Medical Group Family & Internal Medicine [facility] [phone] [place] [phone] Charu Batista MD [address] [place] [address] Med change updates Social History Tobacco Use Types Packs/Day Years [...] CDT Gender Identity Female 11/06/2021 7:23 AM SHOVEL OPERATOR Sexual Orientation Straight 11/06/2021 7: 23 AM SHOVEL OPERATOR documented as of this encounter Progress Notes * Lissette Mars - 10/23/2021 10:04 AM CST Left message to schedule appointment with Dr. Box to discuss medication. EL OPERATOR documented in this encounter Plan of Treatment Not on file documented as of this encounter Visit Diagnoses Not on filedocumented in this encounter Care Teams Literary Writer Relationship Specialty Start Date End Date Charu Batista MD PCP - General 06/01/12 01/23/23 Lj Jones MD PCP - General FAMILY PRACTICE 01/24/23 04/25/24 Celestina Overton, [place] [facility] [address] [address] PCP - General Nurse Practitioner Family 04/26/24 documented as of this encounter
--- OUTSIDE RECORDS SUMMARY | 2024-12-29 10:15 | XMS_ITS | Encounter Summary ---
Author Organization [facility] Address [address] [place] [address] Care Team Providers Care Counseling Department Chair Name Role Phone Celestina Overton NP Primary Care Provider [phone] Encounter Details Date Type Department Care Team (Late st Contact Info) Description 08/03/2024 TextRecruit Message Enc [facility] Medical Group Family & Internal Medicine [facility] [id number] [place] [phone] [place] [address] [address] Famotidine Social History Tobacco Use Types Packs/Day Years Used Date Smoking Tobacco: Former Cigarettes Q uit: 2009 Smokeless Tobacco: Never Alcohol Use Standard Drinks/Week Comments Not Currently 0 (1 standard drink = 0.6 oz pur e alcohol) AUDIT-C Answer Date Recorded Frequency of Alcohol Consumption Never 12/27/2019 Average Number of Drinks Not on file 020 Frequency of Binge Drinking Not on file 030 06/2020 PHQ-2 Answer Date Recorded Patient Health Questionnaire-2 Score 0 07/30/2024 Comments No Sex and Gender Information Value Date Recorded Sex Assigned at Not on file Legal Sex Female 7:31 PM CDT Gender Identity Female 11/06/2021 7:23 AM LOG COOKER Sexual Orientation Straight 11/06/2021 7: 23 AM LOG COOKER documented as of this encounter Progress Notes * Celestina Overton NP - 08/04/2024 9:47 AM CDT Famotidine is available over the counter. I don't know how successful it would be as a fight with the insurance company. You could look at good rx coupons or the hurtado comparison to help save money from what the insurance is charging through them. * Lissette Zamora MA - 08/04/2024 9:23 AM CDT Please advise. Alternative? documented in this encounter Plan of Treatment Not on file documented as of this encounter Visit Diagnoses Not on filedocumented in this encounter Additional Health Concerns Assessment Noted Time PHQ-9 Depression Total Score: 9 07/30/20 24 10:18 AM CDT documented as of this encounter Care Teams Counseling Department Chair Relationship Specialty Start [place] [address] [facility] [address] [place] [address] PCP - General Nurse Practitioner Family 04/26/24 documented as of this encounter
--- OUTSIDE RECORDS SUMMARY | 2024-12-29 10:15 | XMS_ITS | Clinical Summary ---
Author Organization [facility] Address On license of [facility] [place] [address] Care Team Providers Care Shop Superintendent Name Role Phone Celestina Overton NP Primary Care Provider [phone] Allergies Active Allergy Reactions Criticality Noted Date Comments Sulfacetamide Hives Medium 01/06/2015 Tape Contact Dermatitis Low 04/30/2024 Medications MIRENA, 52 MG, 20 MCG/24HR IUD 08/29/2020 Act aidan PROZAC 20 MG capsule Take 1 capsule (20 mg total) by mouth daily. 05/31/2024 Active amitriptyline (ELAVIL) 10 MG tabletIndicatio ns:Primary insomnia TAKE 1 TABLET(10 MG) BY MOUTH EVERY NIGHT AT BEDTIME 90 tablet 10/26/2024 Active Active Problems Problem Noted Date Diagnosed Date Nausea and vomiting, unspecified vomiting type 1 10/20/2023 Acid reflux 08/20/2024 Epigastric pain 08/20/2024 Gastroesophageal reflux disease without esophagi tis 07/30/2024 Left wrist pain 03/03/2021 Night muscle spasms 11/24/2020 Insomnia 07/13/2015 Depression with anxiety 01/06/2015 Resolved Problems Problem Noted Date Diagnosed Date Resolved Date Adult acne 07/13/2015 04/30/2024 Vaginal candidiasis 07/13/2015 07/30/20 Encounters Date Type Department Care Team Description 12/29/2024 MyChart Message Enc [facility] Medical Group Family & Internal Medicine [address] [phone] Celestina Overton, SHELL FREEZING MACHINE OPERATOR Refill requested 12/07/2024 Scan HEALTH INFO SRVCS Scanned, Doc Med Group from Last 3 Months Immunizations Name Administration Dates Next Due Fluzone (IIV3, Trivalent, 0.5 ML Prefilled Syrin ge) 07/30/2024 Fluzone 6 Months+ Quad (0.5 mL Prefilled Syringe ) 08/21/2021,09/06/2020 PFIZER COVID-19 (12+) MRNA, LNP-S, PF, MARY-SUCROSE, 30 MCG/0.3 ML (COMIRNATY) 07/30/2024 PFIZER COVID-19 (ORIGINAL FO RMULATION, PURPLE CAP) mRNA, LNP-S, PF, 30 MCG/0.3 ML DOSE 01/06/2021,12/15/2020 Td 10/29/2011 Td, Adsorbed, Preservative F ree, Adult Use, Lf Unspecified 10/29/2011 Family History Medical History Relation Comments Drug Abuse Brother Depression Father Drug Abuse Father Hyperlipidemia Father Cancer Maternal Grandmother Alcohol/Drug Mother per patient stat es it is family history Drug Abuse Mother None Mother Thyroid Disease Mother Relation Status Comments Brother Father Maternal Grandmother Mother Social History Tobacco Use Types Packs/Day Years Used Date Smoking Tobacco: Former Cigarettes Q uit: 2010 Smokeless Tobacco: Never Tobacco Cessation:Counseling Given: Not Answered Alcohol Use Standard Drinks/Week Comments Not Currently [...] CDT Gender Identity Female 11/06/2021 7:23 AM CHEMICAL PRODUCTION MACHINE OPERATOR Sexual Orientation Straight 11/06/2021 7: 23 AM CHEMICAL PRODUCTION MACHINE OPERATOR Last Filed Vital Signs Vital Sign Reading Time Taken Comments Blood Pressure 102/61 09/08/2024 9:09 AM CHEMICAL PRODUCTION MACHINE OPERATOR Pulse 69 09/08/2024 9:09 AM CHEMICAL PRODUCTION MACHINE OPERATOR Temperature 36.6 C (97.8 F) 09/08/2024 9:09 AM CHEMICAL PRODUCTION MACHINE OPERATOR Respiratory Rate 16 09/08/2024 9:09 AM CHEMICAL PRODUCTION MACHINE OPERATOR Oxygen Saturation 97% 09/08/2024 9:09 AM CHEMICAL PRODUCTION MACHINE OPERATOR Inhaled Oxygen Concentration - - Weight 69.9 kg (154 lb) 09/08/2024 9:09 AM CHEMICAL PRODUCTION MACHINE OPERATOR Height 162.6 cm (5' 4 ) 09/08/2024 9:09 AM CHEMICAL PRODUCTION MACHINE OPERATOR Body Mass Index 26.43 09/08/2024 9:09 AM CHEMICAL PRODUCTION MACHINE OPERATOR Plan of Treatment Health Maintenance Due Date Last Done Comments Annual Physical 1987 Hepatitis B Vaccines (1 of 3 - 19+ 3-dose series) 2003 Cervical Cancer Screening Pap with HPV Testing (Age 30 to 64) Every 5 Years 2014 Cervical Cancer Screening Pap Smear (Age 30 to 64) Every 3 Years 01/06/2018 01/06/2015 Cervical Cancer Screening with HPV 01/06/2018 PHQ-2 (Physician [place]) 10/20/2024 08/20/2024 Mammogram Screening 02/21/2025 02/21/2023 DTaP, Tdap and Td Vaccines (1 - Tdap) 04/30/2025 10/29/2011, 10/29/2011 Postponed from 10/30/2011 (Patient Refused) Hepatitis C Completed 06/12/2021 COVID-19 Vaccine Completed 07/30/2024, , 09/25/2021, Additional history exists Influenza Adult Completed 07/30/2024, 1111/2020, 09/06/2020 HPV Vaccines Aged Out No longer eligi ble based on patient's age to complete this topic Meningococcal B Vaccine Aged Out No l onger eligible based on patient's age to complete this topic Meningococcal Vaccine Aged Out No nato catina eligible based on patient's age to complete this topic Pneumococcal Vaccine: Pediatrics (0 to 5 Years) and At-Risk Patients (6 to 64 Years) Aged Out No longer eligible based on patient's age to complete this topic RSV Immunizations Under 20 Months Aged Out No longer eligible based on patient's age to complete this topic Procedures Procedure Name Priority Date/Time Associated Diagnosis Comments MAMMOGRAM GENERIC (SCAN ORDER) 02/21/2023 HEPATITIS C ANTIBODY W/RFX TO HCV RNA 06/12/2021 12:23 PM CDT OUTSIDE CYTOPATH CERV/VAG INTERPRET (PAP) (SCAN ORDER) Routine 01/06/2015 12:00 AM CDT from Last 3 Months or Most Recently Relevant to Health Maintenance Results * MAMMOGRAM GENERIC (02/21/2023) Anatomical Region Laterality Modality Other 02/21/2023 us [facility] Scanned SCANNING Final Resu lt * HEPATITIS C ANTIBODY W/RFX TO HCV RNA (06/12/2021 12:23 PM CDT) HEPATITIS C AB <0.1 0.0 - 0.9 s/co ratio [facility] 1 INTERPRETATION Comment [facility] 1 Comment: Negative Not infected with HCV, unless recent infection is suspected or other evidence exists to indicate HCV infection. 06/12/2021 12:2 3 PM CDT 06/12/2021 Narrative [facility] - 06/15/2021 9:35 AM CDT Performed at: 01 - [facility] [id number] Hospital Technician: Lele Higginbotham PhD, Phone: [phone] us Charu Batista MD LABORATORY Final Result [facility] [address] [place] [address] [facility] 1 * PAP SMEAR (01/06/2015 12:00 AM CDT) 01/06/2015 us Documents Scanned SCANNING Final Result [facility] from Last 3 Months or Most Recently Relevant to Health Maintenance Insurance [place] [employer] [facility] Care Teams Shop Superintendent Relationship Specialty Start [place] [address] [place] [phone] PCP - General Nurse Practitioner Family 04/26/24
--- NOTE | 2024-12-29 10:18 | ED_ITS ---
HPI - Abdominal Pain General Chief Complaint: Abdominal Pain Stated Complaint: abdominal pain, N/V/D since friday Time Seen by Provider: 12/29/24 09:47 Source: patient Mode of arrival: ambulatory Limitations: no limitations History of Present Illness HPI narrative: Patient is a 39-year-old female who presents the ED with report of nausea, vomiting, upper abdominal pain. Patient reports she was was woken up from her sleep Friday night with nausea, vomiting, diarrhea. Began having pain throughout her upper abdomen. Does have history of GERD/gastritis, typically on sucralfate, but has been unable to keep this down. Reports persistent burning in her epigastric region. States she has been unable to keep down any food or drink over the last couple of days. Denies sick contacts or family versus similar symptoms, rectal bleeding, melena, fevers, cough or cold symptoms, CP, SOB. Was seen at urgent care prior to arrival sent here for further evaluation. She was given a GI cocktail at urgent care which provided minimal relief. Related Data Home Medications ?Medication ?Instructions ?Recorded ?Confirmed ?Last Taken ?Type amitriptyline 10 mg tablet mg 12/29/24 Unknown History fluoxetine 20 mg capsule mg 12/29/24 Unknown History sucralfate 1 gram tablet 12/29/24 Unknown History Allergies Allergy/AdvReac Type Severity Reaction Status Date / Time Sulfa (Sulfonamide Allergy Unknown Rash Verified 12/29/24 10:01 Antibiotics) morphine AdvReac Unknown Itching Verified 12/29/24 10:01 Review of Systems 2 Review of Systems: All systems reviewed & are unremarkable except as noted in HPI. All systems reviewed & are unremarkable except as noted in HPI and below PMFSH Past Medical History Medical History Obesity Depression Anxiety Lung collapse 2010 Surgical History Surgical History History of appendectomy 2011 Family History Family History Mother Family history of thyroid disease Family history of arthritis Grandparent Family history of blood dyscrasia Hypertension Acute myocardial infarction Cerebrovascular accident Family history of arthritis Family history of Parkinson's disease Family history of congestive heart failure Father Family history of mental disorder Depression Hypertension Family history of arthritis Social History Social History Smoking status: Never smoker Smoking end date: 10/20/08 Alcohol intake: current Spiritual care concerns: No Exam 2 Narrative: GENERAL: Well appearing, well-nourished, non-toxic, in no acute distress. HEAD: Normocephalic, atraumatic. RESPIRATORY: Airway patent, respirations nonlabored. Clear to auscultation bilaterally, no rales, rhonchi, wheezing. CARDIOVASCULAR: Regular rate and rhythm without murmurs, rubs, or gallops. ABDOMINAL: Soft, tenderness to palpation to epigastric region. No rebound. Nondistended. Normoactive BS. MUSCULOSKELETAL: Moves all extremities. No gross deformities. SKIN: Warm, dry, normal color. NEURO: A&O X3. Speech clear PSYCHIATRIC: Appropriate mood and affect. Normal interaction. Course Vital Signs Vital signs: Vital Signs Temperature 98.3 F 12/29/24 09:53 Pulse Rate 70 12/29/24 09:53 Respiratory Rate 18 12/29/24 09:53 Blood Pressure 109/67 12/29/24 09:53 Pulse Oximetry 98 12/29/24 09:53 Oxygen Delivery Room Air 12/29/24 09:53 Temperature 98.1 F 12/29/24 13:25 Pulse Rate 72 12/29/24 13:25 Respiratory Rate 18 12/29/24 13:25 Blood Pressure 122/70 12/29/24 13:25 Pulse Oximetry 100 12/29/24 13:25 Oxygen Delivery Room Air 12/29/24 09:53 MDM - Abdominal Pain MDM Narrative Medical decision making narrative: Patient presented to ED with epigastric abdominal pain, recent nausea, vomiting, diarrhea. Vital signs are stable upon arrival. Patient in no acute distress. Symptoms seem most consistent with gastroenteritis, gastritis/GERD. Patient does have history of such. Patient given GI cocktail prior to arrival as well as Zofran ODT. No significant improvement. Will give Pepcid, Benadryl, Reglan, fluids. Laboratory studies showing leukocytosis of 12.4. Patient reported persistent vomiting over the last several days. Potentially reactive. CMP with anion gap of 15. Fluids are ongoing. Potassium slightly low at 3.1. IV and oral replacement ordered. Magnesium within normal range. Kidney function is stable. LFTs are within normal range. Lipase is mildly elevated to 533. UA with 4+ ketones, no significant signs of infection. CT scan of abdomen/pelvis was obtained w/o acute findings. Patient given 2 L of fluid in the ED. She is feeling much better. Able to tolerate p.o. intake. Given her home sucralfate. Feel she is safe for discharge home at this time. Will refer to GI for further evaluation. Will prescribe Zofran for home was well as omeprazole. She is not on any PPI. She feels comfortable going home. Discussed strict return precautions. Discharged in stable condition. Medical Records Attestation: I reviewed the patient's medical records. Lab Data Attestation: I reviewed the patient's lab results. 12/29/24 10:08 12/29/24 10:07 Labs: Lab Results 12/29/24 12/29/24 12/29/24 Range/Units 10:07 10:08 10:55 WBC 12.4 H (4.5-10.0) K/mm3 RBC 4.56 (4.2-5.4) M/mm3 Hgb 14.1 (12.0-15.0) g/dL Hct 41.0 (37.0-47.0) % MCV 89.9 (80-100) fl MCH 30.9 (26-34) pg MCHC 34.4 (32-36) g/dl RDW 12.8 (11.5-14.5) % Plt Count 405 H (150-375) k/mm3 MPV 11.4 H (7.4-10.4) fl Immature Gran % (Auto) 0.3 (0-0.5) % Neut % (Auto) 82.0 H (45.5-73.1) % Lymph % (Auto) 10.7 L (18.3-44.2) % [place] % (Auto) 6.7 (2.6-8.5) % Eos % (Auto) 0.1 (0-4.4) % Baso % (Auto) 0.2 (0.2-1.2) % Lymph # (Auto) 1.33 (0.9-3.2) K/mm3 [place] # (Auto) 0.8 H (0.1-0.6) K/mm3 Eos # (Auto) 0.0 (0-0.3) K/mm3 Baso # (Auto) 0.0 (0.0-0.1) K/mm3 Abs Immat Gran (auto) 0.04 H (0.00-0.031) K/mm3 Absolute Neuts (auto) 10.2 H (1.3-6.7) K/mm3 Absolute Nucleated RBC 0.000 (0.0-0.012) K/mm3 Nucleated RBC % 0.0 (0.0-0.2) % Sodium 135 L (137-145) mmol/L Potassium 3.1 L (3.4-5.0) mmol/L Chloride 94 L (98-107) mmol/L Carbon Dioxide 26 (22-30) mmol/L Anion Gap 15 H (4-12) mmol/L BUN 17 (7-17) mg/dL Creatinine 0.73 (0.7-1.0) mg/dL Estim Creat Clear Calc 87 ml/min Estimated GFR > 60 (59 - ) Glucose 111 H (65-110) mg/dL Calcium 9.6 (8.4-10.2) mg/dL Magnesium 2.0 (1.6-2.3) mg/dL Total Bilirubin 1.2 (0.2-1.3) mg/dL AST 32 (14-36) U/L ALT 27 (6-35) U/L Alkaline Phosphatase 68 (38-126) U/L Total Protein 9.0 H (6.3-8.2) g/dL Albumin 5.3 H (3.5-5.1) g/dL Lipase 533 H (23-300) U/L Urine Color Yellow (Yellow) Urine Appearance Clear (Clear) Urine pH 6.0 (5.0-9.0) Ur Specific [place] 1.035 (1.001-1.035) Urine Protein 2+ H (Negative) mg/dL Urine Glucose (UA) Negative (Negative) mg/dL Urine Ketones 4+ H (Negative) mg/dL Ur Blood (Man) 2+ H (Negative) Urine Nitrate Negative (Negative) Urine Bilirubin Negative (Negative) Urine Urobilinogen 0.2 (<2.0) mg/dL Leukocyte Esterase Rfl Trace H (Negative) JURGEN/UL Urine RBC 11-20 H (0-2) /hpf Urine WBC 0-5 (0-3) /hpf Ur Squamous Epith Cells Few (Few) /hpf Urine Bacteria None seen /hpf Urine Casts 0-2 POC Urine HCG, Qual Negative (Negative) Imaging Data Attestation: I personally reviewed and interpreted this imaging study as follows: Radiologist's impression: ITS Impressions Abdomen/Pelvis CT 12/29/24 11:31 IMPRESSION: 1. No etiology for the patient's symptoms. ECG Data EKG #1: Attestation: I personally reviewed and interpreted this ECG as follows: ECG completion date: 12/29/24 ECG completion time: 09:57 normal rate (66), sinus rhythm, no ST changes and normal QT Discharge Plan Discharge Clinical Impression: Epigastric abdominal pain, Dehydration, Elevated lipase Nausea and vomiting Qualifiers: Vomiting type: unspecified Qualified Code(s): R11.2 - Nausea with vomiting, unspecified GERD (gastroesophageal reflux disease) Qualifiers: Esophagitis presence: with esophagitis Esophagitis bleeding: without hemorrhage Qualified Code(s): K21.00 - Gastro-esophageal reflux disease with esophagitis, without bleeding Patient Disposition: Home, Self-Care Condition: Stable Instructions: Antibiotic Form, Dehydration (ED), Diet for Stomach Ulcers and Gastritis (ED), Gastroenteritis (ED), Acute Nausea and Vomiting (ED) Additional Instructions: Take omeprazole and sucralfate daily as prescribed for acid reflux. Continue Zofran as needed for nausea. Stay very well hydrated, recommend electrolyte rich fluids, Gatorade, Pedialyte, body armor. Follow-up with primary care doctor and GI for further evaluation. Recommend clear liquids or bland diet until symptoms improve, such as bananas, rice, applesauce, toast, or crackers. Avoid foods that are very greasy, spicy, fatty, acidic. Return to the ED if you experience worsening or severe symptoms, unable to keep down food or drink, severe pain, fevers, rectal bleeding, vomiting blood, or any other symptoms of concern. Patient Language: Citizen [place] Prescriptions: New omeprazole 10 mg capsule,delayed release(DR/EC) 10 mg PO DAILY Qty: 30 0RF ondansetron 4 mg tablet,disintegrating 4 mg PO Q8H PRN (Reason: nausea and vomiting) Qty: 15 0RF No Action sucralfate 1 gram tablet amitriptyline 10 mg tablet fluoxetine 20 mg capsule Follow-up/Referrals: Brooklynn,Celestina Cannon APRN [Primary Care Provider] - Odell Antunez MD [Physician] - (GI) Ap Pierce MD [Physician] - (GI) Stand Alone Forms: Work/School Release IP Time of Disposition: 12:32
[2024-12-29] MEDS: diphenhydrAMINE HCl INJ 50 MG/ML VIAL 25 MG IV PUSH (10:27)
[2024-12-29] MEDS: METOCLOPRAMIDE HCL INJ 10 MG/2 ML VIAL IV PUSH (10:27)
[2024-12-29] MEDS: FAMOTIDINE 20 MG/2 ML VIAL IV PUSH (10:27)
[2024-12-29] MEDS: SODIUM CHLORIDE 0.9% IV 1,000 ML 999 ML IV CONT ×2 (10:27→10:52)
[2024-12-29 10:28] LABS: Alanine Aminotransferase 27 U/L (6-35); Albumin Level 5.3 g/dL (3.5-5.1); Alkaline Phosphatase 68 U/L (38-126); Anion Gap 15 mmol/L (4-12); Aspartate Amino Transferase 32 U/L (14-36); Bilirubin,Total 1.2 mg/dL (0.2-1.3); Blood Urea Nitrogen 17 mg/dL (7-17); Calcium 9.6 mg/dL (8.4-10.2); Carbon Dioxide 26 mmol/L (22-30); Chloride 94 mmol/L (98-107); Estimated CRCL calculation 87 ml/min; Estimated Glomerular Filt Rate > 60; Glucose 111 mg/dL (65-110); Lipase 533 U/L (23-300); Potassium 3.1 mmol/L (3.4-5.0); Sodium 135 mmol/L (137-145)
[2024-12-29] MEDS: KCL 20 MEQ/SW 100 ML 100 ML 50 MEQ IVPB (10:52)
[2024-12-29 10:57] LABS: BEDSIDEPREGUCG Negative (Negative)
--- OUTSIDE RECORDS SUMMARY | 2024-12-29 11:01 | XMS_ITS | Encounter Summary ---
Author Organization [facility] Address [address] [place] [address] Care Team Providers Care Lithograph Printer Name Role Phone Charu Batista MD Primary Care Provider + [phone] Lj Jones MD Primary Care Pr Celestina Garcia NP Primary Care Provider + [phone] Encounter Details Date Type Department Care Team (Late st Contact Info) Description 01/02/2023 viaForensicst Message Enc [facility] Medical Group Family & Internal Medicine [facility] [address] [place] [phone] Charu Batista MD [address] [place] [address] Antibiotic Social History Tobacco Use Types [...] CDT Gender Identity Female 11/06/2021 7:23 AM RETAIL PLANNER Sexual Orientation Straight 11/06/2021 7 :23 AM RETAIL PLANNER documented as of this encounter Plan of Treatment Not on file documented as of this encounter Visit Diagnoses Not on filedocumented in this encounter Additional Health Concerns Assessment Noted Time PHQ-9 Depression Total Score: 4 11/20/19 11:21 AM RETAIL PLANNER documented as of this encounter Care Teams Lithograph Printer Relationship Specialty Start Date End Date Charu Batista MD PCP - General 06/01/12 01/23/23 Lj Jones MD PCP - General FAMILY PRACTICE 01/24/23 04/25/24 [place] [address] [place] [phone] PCP - General Nurse Practitioner Family 04/26/24 documented as of this encounter
--- OUTSIDE RECORDS SUMMARY | 2024-12-29 11:01 | XMS_ITS | Encounter Summary ---
Author Organization [facility] Address [address] [place] [address] Care Team Providers Care Print And Pattern Designer Name Role Phone Charu Batista MD Primary Care Provider + [phone] Lj Jones MD Primary Care Pr Celestina Garcia NP Primary Care Provider + [phone] Encounter Details Date Type Department Care Team (Late st Contact Info) Description 05/02/2021 WeDemandt Message Enc [facility] Medical Group Family & Internal Medicine [facility] [id number] [place] [phone] Charu Batista MD [address] [place] [address] RE: Question Social History Tobacco Use [...] CDT Gender Identity Female 11/06/2021 7:23 AM KEG HEADER Sexual Orientation Straight 11/06/2021 7: 23 AM KEG HEADER documented as of this encounter Progress Notes * Sienna Galdamez MA - 05/03/2021 8:53 AM CDT Please advise documented in this encounter Plan of Treatment Not on file documented as of this encounter Visit Diagnoses Not on filedocumented in this encounter Care Teams Print And Pattern Designer Relationship Specialty Start Date End Date Charu Batista MD PCP - General 06/01/12 01/23/23 Lj Jones MD PCP - General FAMILY PRACTICE 01/24/23 04/25/24 [place] [address] [address] PCP - General Nurse Practitioner Family 04/26/24 documented as of this encounter
--- OUTSIDE RECORDS SUMMARY | 2024-12-29 11:01 | XMS_ITS | Encounter Summary ---
Author Organization [facility] Address [address] [place] [address] Care Team Providers Care Jute Bag Sewer Name Role Phone Celestina Overton NP Primary Care Provider [phone] Encounter Details Date Type Department Care Team (Late st Contact Info) Description 12/29/2024 [employer] Message Enc [facility] Medical Group Family & Internal Medicine [facility] [phone] [place] [phone] Celestina Overton [phone] [place] [address] [place] [address] Refill requested Social History Tobacco Use [...] CDT Gender Identity Female 11/06/2021 7:23 AM FURNITURE MANAGER Sexual Orientation Straight 11/06/2021 7: 23 AM FURNITURE MANAGER documented as of this encounter Plan of Treatment Not on file documented as of this encounter Visit Diagnoses Not on filedocumented in this encounter Additional Health Concerns Assessment Noted Time PHQ-9 Depression Total Score: 0 08/20/20 1:41 PM CDT documented as of this encounter Care Teams Jute Bag Sewer Relationship Specialty Start [place] [address] [facility] [address] [place] [phone] PCP - General Nurse Practitioner Family 04/26/24 documented as of this encounter
--- OUTSIDE RECORDS SUMMARY | 2024-12-29 11:01 | XMS_ITS | Encounter Summary ---
Author Organization [facility] Address [address] [place] [address] Care Team Providers Care Broadcast Producer Name Role Phone Charu Batista MD Primary Care Provider + [phone] Lj Jones MD Primary Care Pr Celestina Garcia NP Primary Care Provider + [phone] Encounter Details Date Type Department Care Team (Late st Contact Info) Description 01/04/[address] [facility] [address] [place] [address] [place] [address] [place] [address] RE: Follow Up/Update Social History [...] CDT Gender Identity Female 11/06/2021 7:23 AM COIN ROLLING MACHINE OPERATOR Sexual Orientation Straight 11/06/2021 7: 23 AM COIN ROLLING MACHINE OPERATOR documented as of this encounter Plan of Treatment Not on file documented as of this encounter Visit Diagnoses Not on filedocumented in this encounter Care Teams Broadcast Producer Relationship Specialty Start Date End Date Charu Batista MD PCP - General 06/01/12 01/23/23 Lj Jones MD PCP - General FAMILY PRACTICE 01/24/23 04/25/24 [place] [address] [place] [address] PCP - General Nurse Practitioner Family 04/26/24 documented as of this encounter
--- OUTSIDE RECORDS SUMMARY | 2024-12-29 11:01 | XMS_ITS | Encounter Summary ---
Author Organization [facility] Address [address] [place] [address] Care Team Providers Care Signals Collector/Analyst Name Role Phone Celestina Overton NP Primary Care Provider Encounter Details Date Type Department Care Team (Late st Contact Info) Description 05/04/2024 GrayBug Message Enc [facility] Medical Group Family & Internal Medicine [facility] [id number] [place] [phone] [place] [id number] [place] [address] [place] [address] Uti? Social History Tobacco Use Types [...] CDT Gender Identity Female 11/06/2021 7:23 AM CLINICAL LABORATORY SERVICE TEACHER Sexual Orientation Straight 11/06/2021 7: 23 AM CLINICAL LABORATORY SERVICE TEACHER documented as of this encounter Plan of Treatment Not on file documented as of this encounter Visit Diagnoses Not on filedocumented in this encounter Additional Health Concerns Assessment Noted Time PHQ-9 Depression Total Score: 6 04/30/20 24 11:16 AM CDT documented as of this encounter Care Teams Signals Collector/Analyst Relationship Specialty [place] [address] [address] [place] [address]. [place] [address] PCP - General Nurse Practitioner Family 04/26/24 documented as of this encounter
--- OUTSIDE RECORDS SUMMARY | 2024-12-29 11:01 | XMS_ITS | Clinical Summary ---
Author Organization [facility] Address [facility] [place] [address] Care Team Providers Care Gill Box Operator Name Role Phone Celestina Overton NP Primary Care Provider [phone] Allergies Active Allergy Reactions Criticality Noted Date [...] Care Team Description 12/29/2024 MyChart Message Enc [facility] Medical Group Family & Internal Medicine [address] [phone] Celestina Overton, STRAIGHT PIN MAKING MACHINE OPERATOR Refill requested 12/07/2024 Scan HEALTH [...] CDT Gender Identity Female 11/06/2021 7:23 AM WIRE STITCHER Sexual Orientation Straight 11/06/2021 7: 23 AM WIRE STITCHER Last Filed Vital Signs Vital Sign Reading Time Taken Comments Blood Pressure 102/61 09/08/2024 9:09 AM WIRE STITCHER Pulse 69 09/08/2024 9:09 AM WIRE STITCHER Temperature 36.6 C (97.8 F) 09/08/2024 9:09 AM WIRE STITCHER Respiratory Rate 16 09/08/2024 9:09 AM WIRE STITCHER Oxygen Saturation 97% 09/08/2024 9:09 AM WIRE STITCHER Inhaled Oxygen Concentration - - Weight 69.9 kg (154 lb) 09/08/2024 9:09 AM WIRE STITCHER Height 162.6 cm (5' 4 ) 09/08/2024 9:09 AM WIRE STITCHER Body Mass Index 26.43 09/08/2024 9:09 AM WIRE STITCHER Plan of Treatment Health Maintenance Due Date Last Done Comments Annual Physical 1987 Hepatitis B Vaccines (1 of 3 - 19+ 3-dose series) 2003 Cervical Cancer Screening Pap with HPV Testing (Age 30 to 64) Every 5 Years 2014 Cervical Cancer Screening Pap Smear (Age 30 to 64) Every 3 Years 01/06/2018 01/06/2015 Cervical Cancer Screening with HPV 01/06/2018 PHQ-2 (Physician Hyndman) 10/20/2024 08/20/2024 Mammogram Screening 02/21/2025 02/21/2023 DTaP, [...] 9:35 AM CDT Performed at: 01 - [facility] [id number] Telegraphic Typewriter Mechanic: Lele Higginbotham PhD, Phone: [phone] us Charu Batista MD LABORATORY Final Result [facility] [address] [place] [address] [facility] 1 * PAP SMEAR (01/06/2015 12:00 AM CDT) 01/06/2015 us Documents Scanned SCANNING Final Result [facility] from Last 3 Months or Most Recently Relevant to Health Maintenance Insurance [employer] OPEN ACCESS [facility] Care Teams Gill Box Operator Relationship Specialty [place] [address] [address] [id number] PCP - General Nurse Practitioner Family 04/26/24
--- OUTSIDE RECORDS SUMMARY | 2024-12-29 11:01 | XMS_ITS | Encounter Summary ---
Author Organization [facility] Address [address] [place] [address] Care Team Providers Care Cytotechnologist Name Role Phone Celestina Overton NP Primary Care Provider [phone] Encounter Details Date Type Department Care Team (Late st Contact Info) Description 06/22/2024 ExtraFootie Message Enc [facility] Medical Group Family & Internal Medicine [facility] [address] [place] [phone] [place] [address] [facility] [address] [place] [address] Covid positive Social History Tobacco Use [...] CDT Gender Identity Female 11/06/2021 7:23 AM PIPEFITTER Sexual Orientation Straight 11/06/2021 7: 23 AM PIPEFITTER documented as of this encounter Plan of Treatment Not on file documented as of this encounter Visit Diagnoses Not on filedocumented in this encounter Additional Health Concerns Assessment Noted Time PHQ-9 Depression Total Score: 6 04/30/20 24 11:16 AM CDT documented as of this encounter Care Teams Cytotechnologist Relationship Specialty [place] [address] [address] [facility] [address] [place] [id number] PCP - General Nurse Practitioner Family 04/26/24 documented as of this encounter
--- OUTSIDE RECORDS SUMMARY | 2024-12-29 11:01 | XMS_ITS | Encounter Summary ---
Author Organization [facility] Address [address] [place] [address] Care Team Providers Care Coat Agent Name Role Phone Celestina Overton NP Primary Care Provider [phone] Encounter Details Date Type Department Care Team (Late st Contact Info) Description 08/03/2024 GroundLink Message Enc [facility] Medical Group Family & Internal Medicine 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 [place] [address] PCP - General Nurse Practitioner Family 04/26/24 documented as of this encounter
--- OUTSIDE RECORDS SUMMARY | 2024-12-29 11:01 | XMS_ITS | Encounter Summary ---
Author Organization [facility] Address [address] [place] [address] Care Team Providers Care Establishment Guide Name Role Phone Charu Batista MD Primary Care Provider + [phone] Lj Jones MD Primary Care Pr Celestina Garcia NP Primary Care Provider + [phone] Encounter Details Date Type Department Care Team (Late st Contact Info) Description 10/22/[address] [facility] Medical Group Family & Internal Medicine [facility] [phone] [place] [phone] Charu Batista MD [address] [place] [address] Med change updates Social History Tobacco [...] CDT Gender Identity Female 11/06/2021 7:23 AM GEOSPATIAL TECHNOLOGIST Sexual Orientation Straight 11/06/2021 7: 23 AM GEOSPATIAL TECHNOLOGIST documented as of this encounter Progress Notes * Lissette Mars - 10/23/2021 10:04 AM CST Left message to schedule appointment with Dr. Box to discuss medication. PATIAL TECHNOLOGIST documented in this encounter Plan of Treatment Not on file documented as of this encounter Visit Diagnoses Not on filedocumented in this encounter Care Teams Establishment Guide Relationship Specialty Start Date End Date Charu Batista MD PCP - General 06/01/12 01/23/23 Lj Jones MD PCP - General FAMILY PRACTICE 01/24/23 04/25/24 Celestina Overton, REGISTERED VETERINARY TECHNICIAN [address] [address] PCP - General Nurse Practitioner Family 04/26/24 documented as of this encounter
--- OUTSIDE RECORDS SUMMARY | 2024-12-29 11:01 | XMS_ITS | Encounter Summary ---
Author Organization [facility] Address [address] [place] [address] Care Team Providers Care Fermenter Name Role Phone Charu Batista MD Primary Care Provider + [phone] Lj Jones MD Primary Care Pr Celestina Garcia NP Primary Care Provider + [phone] Encounter Details Date Type Department Care Team (Late st Contact Info) Description 06/05/2022 Financial Transaction Servicest Message Enc [facility] Medical Group Family & Internal Medicine [facility] [phone] [place] [phone] Charu Batista MD [address] [place] [address] Option for suspected UTI Social History [...] CDT Gender Identity Female 11/06/2021 7:23 AM DOCUMENTATION BILLING CLERK Sexual Orientation Straight 11/06/2021 7: 23 AM DOCUMENTATION BILLING CLERK documented as of this encounter Plan of Treatment Not on file documented as of this encounter Visit Diagnoses Not on filedocumented in this encounter Care Teams Fermenter Relationship Specialty Start Date End Date Charu Batista MD PCP - General 06/01/12 01/23/23 Lj Jones MD PCP - General FAMILY PRACTICE 01/24/23 04/25/24 [place] [address] [place] [address] PCP - General Nurse Practitioner Family 04/26/24 documented as of this encounter
[2024-12-29 11:11] LABS: Add Urine Microscopic? YES; Appearance Urine Clear (Clear); Bacteria Urine None Seen /hpf; Bilirubin Urine Negative (Negative); Blood Urine 2+ (Negative); Color Urine Yellow (Yellow); Glucose Urine UA Negative (Negative); Ketones Urine 4+ mg/dL (Negative); Leukocyte Esterase Ur Trace LEU/UL (Negative); Nitrate Urine Negative (Negative); Non Pathogenic Casts 0-2; Protein Urine 2+ mg/dL (Negative); Specific Grav Ur 1.035 (1.001-1.035); Squamous Epithelial Cell Urine Few /hpf (Few); Urobilinogen Urine 0.2 mg/dL (<2.0); WBC Urine 0-5 /hpf (0-3)
[2024-12-29] MEDS: SUCRALFATE 1 GM TABLET PO (12:04)
[2024-12-29] MEDS: POTASSIUM CHLORIDE 20 MEQ ER TABLET PO (13:01)
== END 2024-12-29 13:27 | disposition home or self-care (01) ==
PROVIDERS: Emergency Provider Physician Assistant; PCP Nurse Practitioner Family
DX: R11.2 Nausea with vomiting, unspecified (principal); E66.9 Obesity, unspecified; Z68.27 Body mass index [BMI] 27.0-27.9, adult; K21.9 Gastro-esophageal reflux disease without esophagitis; F41.9 Anxiety disorder, unspecified; F32.A Depression, unspecified; Z87.891 Personal history of nicotine dependence
CPT/HCPCS: 36415; 74177; 80053; 81001; 81025; 83690; 83735; 85025; 93005; 96365; 96366; 96375; 99284; A9270; J1200; J2765; J3480; J7030; Q9967

== ENCOUNTER 2025-05-09 15:18 | Outpatient (CLI) | payer OTHER, SELFPAY ==
--- NOTE | ~2025-05-09 | MM_ITS ---
EXAMINATION: [place] screening [facility] INDICATION: Asymptomatic, referred for screening mammogram COMPARISON: 04/23/2024 through 08/08/2020 TECHNIQUE: Digital Breast Tomosynthesis CC, MLO views of Both breasts were obtained with computer-ai ded detection to assist in interpretation of the study. FINDINGS: There are scattered areas of fibroglandular density. There is a focal asymmetry in the inferior medial right breast at posterior depth number centered at 6 cm posterior to the nipple appears larger in the interval. Benign dystrophic calcifications scatter ed within the right breast. Elsewhere, there are no mammographic features of malignancy. IMPRESSION: 1. Right breast enlarging focal asymmetry. 2. No evidence of malignancy in the Left breast. RECOMMENDATION: Right breast Diagnostic mammogram with true lateral, appropriate spot compression views and an ultras ound. BI-RADS Category 0: Incomplete: Needs additional imaging evaluation. Reviewed, dictated and finalized at location B. IMPRESSION: 1. Right breast enlarging focal asymmetry. 2. No evidence of malignancy in the Left breast. RECOMMENDATION: Right breast Diagnostic mammogram with true lateral, appropriate spot compressi on views and an ultrasound. BI-RADS Category 0: Incomplete: Needs additional imaging evaluation.
--- OUTSIDE RECORDS SUMMARY | 2025-05-09 15:22 | XMS_ITS | Encounter Summary ---
Author Organization [facility] Address [address] [place] [address] Care Team Providers Care Gem Stone Cutter Name Role Phone Celestina Overton NP Primary Care Provider [phone] Encounter Details Date Type Department Care Team (Late st Contact Info) Description 02/28/[address] [facility] Medical Group Family & Internal Medicine [facility] [id number] [place] [phone] [place] [address] [facility] [address] [place] [address] [address] [address] results Social History Tobacco Use Types Packs/Day Years [...] Date Recorded Patient Health Questionnaire-2 Score 0 02/04/2025 Comments No Sex and Gender Information Value Date Recorded Sex Assigned at Female 02/04/2025 9:39 AM CDT Legal Sex Female 7:31 PM CDT Gender Identity Female 11/06/2021 7:23 AM BOAT PULLER Sexual Orientation Straight 11/06/2021 7: 23 AM BOAT PULLER documented as of this encounter Progress Notes * Celestina Overton NP - 03/02/2025 1:25 PM CDT Recommendation made in result not. There is no recommended treating or treatment based off of the CT results. To evaluate her breathing she could complete a pulmonary function test which could help diagnosis a presence of asthma. The spleen is marginally enlarged - no immediate concern at this time. documented in this encounter Plan of Treatment Not on file documented as of this encounter Visit Diagnoses Not on filedocumented in this encounter Additional Health Concerns Assessment Noted Time PHQ-9 Depression Total Score: 0 08/20/20 24 1:41 PM CDT documented as of this encounter Care Teams Gem Stone Cutter Relationship Specialty [place] [address] [facility] [address] [place] [address] PCP - General Nurse Practitioner Family 04/26/24 documented as of this encounter
--- OUTSIDE RECORDS SUMMARY | 2025-05-09 15:22 | XMS_ITS | Encounter Summary ---
Author Organization [facility] Address [address] [place] [address] Care Team Providers Care Barrel Inspector Name Role Phone Celestina Overton NP Primary Care Provider [phone] Encounter Details Date Type Department Care Team (Latest Contact Info) Description 05/03/2025 [employer] Message Enc [facility] Medical Group Family & Internal Medicine [address] [phone] Celestina Overton [place] [address] [place] [address] Spiranolactone question Social History Tobacco Use Types Packs/Day Years [...] CDT Gender Identity Female 11/06/2021 7:23 AM RENTAL SALES AGENT Sexual Orientation Straight 11/06/2021 7: 23 AM RENTAL SALES AGENT documented as of this encounter Progress Notes * Celestina Overton NP - 05/03/2025 3:49 PM CDT No no interaction with your other medications! All is good. documented in this encounter Plan of Treatment Not on file documented as of this encounter Visit Diagnoses Not on filedocumented in this encounter Additional Health Concerns Assessment Noted Time PHQ-9 Depression Total Score: 0 08/20/20 24 1:41 PM CDT documented as of this encounter Care Teams Barrel Inspector Relationship Specialty [place] [address] [place] [address] PCP - General Nurse Practitioner Family 04/26/24 documented as of this encounter
--- OUTSIDE RECORDS SUMMARY | 2025-05-09 15:22 | XMS_ITS | Encounter Summary ---
Author Organization [facility] Address [address] [place] [address] Care Team Providers Care Co Director Name Role Phone Chaur Batista MD Primary Care Provider + [phone] Lj Jones MD Primary Care Pr Celestina Garcia NP Primary Care Provider + [phone] Encounter Details Date Type Department Care Team (Late st Contact Info) Description 01/04/2021 [employer] Message [facility] [address] [place] [address] [place] [address] [place] [address] RE: Follow Up/Update Social History [...] CDT Gender Identity Female 11/06/2021 7:23 AM TEACHER OF THE DEAF Sexual Orientation Straight 11/06/2021 7: 23 AM TEACHER OF THE DEAF documented as of this encounter Plan of Treatment Not on file documented as of this encounter Visit Diagnoses Not on filedocumented in this encounter Care Teams Co Director Relationship Specialty Start Date End Date Charu Batista MD PCP - General 06/01/12 01/23/23 Lj Jones MD PCP - General FAMILY PRACTICE 01/24/23 04/25/24 [place] [address] [place] [address] PCP - General Nurse Practitioner Family 04/26/24 documented as of this encounter
--- OUTSIDE RECORDS SUMMARY | 2025-05-09 15:22 | XMS_ITS | Clinical Summary ---
Author Organization [facility] [employer] Address [address] [place] [address] Care Team Providers Care Medical Reception Name Role Phone Celestina Overton Julianna MASS SPEC-PROPERTY DEVELOPER Primary Care Provider Source Comments [facility] [employer],non-owned Affiliates and Associated Physician Practices is amultiple site organization consisting of ambulatory clinics and hospital sitesin [place], [place], [place] and [place]. This disclosure is being madepursuant to the Care Everywhere program and may not contain all information available regarding this patient. Last updated 18.[facility] [employer] Allergies No known active allergies Medications * Be aware that medications may not be up to date on this document. Alwaysverify current medications with the patient. FLUoxetine (PROzac) 20 MG/5ML oral solution 03/10/2023 Active vitamin D (Cholecaciferol ) 125 MCG (5000 UT) capsule 12/18/2024 Active famotidine (Pepcid) 20 MG tablet 04/30/2024 Active PROzac 20 MG capsule Take 1 (one) capsule by mouth once daily 05/31/2024 Active omeprazole (PriLOSEC) 40 MG capsule 90 (ninety) capsules 01/21/2025 Active ondansetron, disintegrating, (Zofran ODT) 4 MG tablet Take 1 (one) tablet by mouth every 8 hours as needed 12/29/2024 Active traZODone (Desyrel) 100 MG tablet Take 1 (one) tablet by mouth once daily 02/04/2025 Active cyanocobalamin (Vitamin B-12) 100 MCG tablet Take 1 (one) tablet by mouth once daily Active Encounters Date Type Department Care Team Description 05/06/2025 Lab Requisition [facility] - DermPath Lab [address] [place] [address] Robin Downey MD 03/18/2025 Travel 03/12/2025 Results Follow-Up [facility] - Rheumatology [address] [place] [address] Isis Hassan MD 03/11/2025 2:39 PM CDT - 03/11/2025 11:59 PM CDT Hospital Encounter [facility] - Medical Imaging [address] [place] [address] Isis Hassan MD Discharge Disposition: Home or Self Care 03/11/2025 2:39 PM CDT - 03/11/2025 11:59 PM CDT Hospital Encounter [facility] - Medical Imaging [address] [place] [address] Isis Hassan MD Discharge Disposition: Home or Self Care 03/11/2025 2:39 PM CDT - 03/11/2025 11:59 PM CDT Hospital Encounter [facility] - Medical Imaging [address] [place] [address] Isis Hassan MD Discharge Disposition: Home or Self Care 03/11/2025 2:13 PM CDT - 03/11/2025 2:38 PM CDT Hospital Encounter [facility] - Medical Imaging [address] [place] [address] Isis Hassan MD Discharge Disposition: Home or Self Care 03/11/2025 1:00 PM CDT Office Visit [facility] Rheumatology [address] [place] [address] Isis Hassan MD Recurrent infections (Primary Dx); Polyarthralgia; Low back pain, unspecified back pain laterality, unspecified chronicity, unspecified whether sciatica present 03/11/2025 Travel 02/28/2025 Travel from Last 3 Months Social History Tobacco Use Types Packs/Day Years Used Date Smoking Tobacco: Never Assessed Comments Unknown Sex and Gender Information Value Date Recorded Sex Assigned at Not on file Legal Sex Female 9:16 AM CDT Gender Identity Not on file Sexual Orientation Not on file Last Filed Vital Signs Vital Sign Reading Time Taken Comments Blood Pressure 109/52 03/11/2025 1:05 PM CDT Pulse 78 03/11/2025 1:05 PM CDT Temperature - - Respiratory Rate - - Oxygen Saturation 99% 03/11/2025 1:05 PM CDT Inhaled Oxygen Concentration - - Weight 76.2 kg (168 lb) 03/11/2025 1:05 PM CDT Height - - Body Mass Index - - Plan of Treatment Upcoming Encounters Date Type Department Care Team (Late st Contact Info) Description 05/11/2025 1:00 PM CDT Office Visit [facility] - Allergy [address] [place] [address], [place] [phone] Mike Callaway MD [address] [place] [address] OF ALLERGY/[place] [address] Health Maintenance Due Date Last Done Comments LIPID TESTING 1984 HIV SCREENING 1999 DTAP/TDAP/TD VACCINES (1 - Tdap) 2003 HEPATITIS B VACCINE (1 of 3 - 19+ 3-dose series) 2003 PAP SMEAR 2005 HPV VACCINE (1 - 3-dose SCDM series) 2011 COVID-19 VACCINE (3 - 2023-2 5 season) 2024 01/06/2021, 12/15/2020 DEPRESSION SCREENING 10/20/2024 MAMMOGRAM 02/21/2025 02/21/2023 INFLUENZA VACCINE (#1) 2025 , 08/21/2021, 09/06/2020 ZOSTER VACCINE (1 of 2) 2034 HEPATITIS C SCREENING Completed 06/12/2021 HIB VACCINE Aged Out No longer eligi ble based on patient's age to complete this topic MENINGOCOCCAL (Group B) VACCINE SHARED DECISION-MAKING Aged Out No longer eligible based on patient's age to complete this topic MENINGOCOCCAL GROUPS A/C/Y/W VACCINE Aged Out No longer eligible b ased on patient's age to complete this topic PNEUMOCOCCAL VACCINE Aged Out No long er eligible based on patient's age to complete this topic Procedures Procedure Name Priority Date/Time Associated Diagnosis Comments CYCLIC CITRULLINATED PEPTIDE(CCP) AB IGG Routine 03/11/2025 3:06 PM CDT Polyarthralgia VASQUEZ PANEL COMPREHENSIVE Routine 03/11/2025 3:06 PM CDT Polyarthralgia HLA TYPING B27 Routine 03/11/2025 3:05 PM CDT Polyarthralgia CK BLOOD Routine 03/11/2025 3:04 PM CDT Polyarthralgia C-REACTIVE PROTEIN Routine 03/11/2025 3: 04 PM CDT Polyarthralgia ERYTHROCYTE SEDIMENTATION RATE Routine 03/11/2025 3:04 PM CDT Polyarthralgia COMPREHENSIVE METABOLIC PANEL Routine 03/11/2025 3:04 PM CDT Polyarthralgia CBC W AUTO DIFFERENTIAL Routine 03/11/2025 3:04 PM CDT Polyarthralgia RHEUMATOID FACTOR BLOOD QUANTITATIVE Routine 03/11/2025 3:04 PM CDT Polyarthralgia COMPLEMENT C3 C4 PANEL Routine 3:04 PM CDT Polyarthralgia VASQUEZ BLOOD SCREEN W/REFLEX TITER Routine 03/11/2025 3:04 PM CDT Polyarthralgia XR SI JOINTS 3VW OR MORE Routine 03/11/2025 2:59 PM CDT Low back pain, unspecified back pain laterality, unspecified chronicity, unspecified whether sciatica present XR PELVIS W BILAT HIP 2VW Routine 03/11/2025 2:58 PM CDT Low back pain, unspecified back pain laterality, unspecified chronicity, unspecified whether sciatica present XR LUMBAR SPINE 2 OR 3VW Routine 03/11/2025 2:58 PM CDT Low back pain, unspecified back pain laterality, unspecified chronicity, unspecified whether sciatica present from Last 3 Months Results * VASQUEZ PANEL COMPREHENSIVE (03/11/2025 3:06 PM CDT) Anti-dsDNA Quantitative <1 0 - 9 IU/mL [facility] ACCOUNT [facility] Comment: Negative <5 Equivocal 5 - 9 Positive >9 PBX MANAGER Antibody 0.8 0.0 - 0.9 AI [facility] ACCOUNT BILL Lees (TALON) Antibody <0.2 0.0 - 0.9 AI [facility] ACCOUNT BILL Antiscleroderma-70 Antibody <0.2 0.0 - 0.9 AI [facility] ACCOUNT BILL Sjogren's Antibodies (SSA) <0.2 0.0 - 0.9 AI [facility] ACCOUNT BILL Sjogren's Antibodies (SSB) <0.2 0.0 - 0.9 AI [facility] ACCOUNT BILL Antichromatin Antibodies <0.2 0.0 - 0.9 AI [facility] ACCOUNT BILL Frida-1 Antibody <0.2 0.0 - 0.9 AI [facility] ACCOUNT BILL Centromere B Antibody <0.2 0.0 - 0.9 AI [facility] ACCOUNT BILL See Below Comment [facility] ACCOUNT [facility] Comment: Autoantibody Disease Association Condition Frequency --------- Antinuclear Antibody, SLE, mixed connective Direct (VASQUEZ-D) tissue diseases --------- dsDNA SLE 40 - 60% --------- Chromatin Drug induced SLE 90% SLE 48 - 97% --------- SSA (Ro) SLE 25 - 35% Sjogren's Syndrome 40 - 70% Lupus 100% --------- SSB (La) SLE 10% Sjogren's Syndrome 30% --------- Sm (anti-Lees) SLE 15 - 30% --------- PBX MANAGER Mixed Connective Tissue Disease 95% (U1 nRNP, SLE 30 - 50% anti-ribonucleoprotein) Polymyositis and/or Dermatomyositis 20% --------- Scl-70 (antiDNA Scleroderma (diffuse) 20 - 35% topoisomerase) Crest 13% --------- Frida-1 Polymyositis and/or Dermatomyositis 20 - 40% --------- Centromere B Scleroderma - Crest variant 80% Blood BLOOD SPECIMEN / Unknown 03/11/2025 3:06 PM CDT 03/11/2025 Narrative [facility] ACCOUNT BILL - 03/14/2025 11:10 AM CDT Performed at: - [facility] [address] [place], [place] [id number] Sustain Engineer: Lele Higginbotham PhD, Phone: [phone] Isis Hassan MD LAB - SEROLOGY ORDERABLES Final Result Performing Organization Address [facility] de Phone Number [facility] ACCOUNT BILL [address] [place] [address] * CYCLIC CITRULLINATED PEPTIDE(CCP) AB IGG (03/11/2025 3:06 PM CDT) CCP Antibodies IgG/IgA <20 <20 Units [facility] ACCOUNT BILL Comment: Negative: <20 Weak Positive: 20-39 Moderate Positive: 40-59 Strong Positive: >59 Blood BLOOD SPECIMEN / Unknown 03/11/2025 3:06 PM CDT 03/11/2025 Narrative [facility] ACCOUNT BILL - 03/20/2025 9:07 PM CDT Performed at: - [facility] [address] [place] [id number] Sustain Engineer: Narciso Novak MD, Phone: [phone] Isis Hassan MD LAB - CHEMISTRY ORDERABLES Final Result Performing Organization Address City/[facility] Co de Phone Number [facility] ACCOUNT BILL [address] [place] [address] * HLA TYPING B27 (03/11/2025 3:05 PM CDT) Pathologist [facility] HLA-B27 Negative [facility] ACCOUNT BILL Comment: HLA-B*27 Negative B27 allele interpretation for all loci based on IMGT/HLA database version 3.58 This test was developed and its performance characteristics determined by [facility]. It has not been cleared or approved by the Food and Drug Administration. The FDA has determined that such clearance or approval is not necessary. [facility] Lab CLIA ID Number [id number] HISTOCOMPATIBILITY SECTION DIRECTOR: Maggie Ellis, PhD, F([facility]) This test was performed using Polymerase Chain Reaction (PCR) and Sequence Specific Oligonucleotide Probes (SSOP) technique. Sequence Based Typing (SBT) may be used as a supplemental method when necessary. If you have questions, please call HLA customer service at or email at [email or web address]. Blood BLOOD SPECIMEN / Unknown 03/11/2025 3:05 PM CDT 03/11/2025 Narrative [facility] ACCOUNT BILL - 03/23/2025 6:09 PM CDT Performed at: - [address] [id number] Sustain Engineer: Lou Vargas PhD, Phone: [phone] Isis Hassan MD LAB - CHEMISTRY ORDERABLES Final Result Performing Organization Address City/[facility]/ZIP Co de Phone Number [facility] ACCOUNT [facility] [address] [place] [address] * RHEUMATOID FACTOR BLOOD QUANTITATIVE (03/11/2025 3:04 PM CDT) Rheumatoid Factor <10.0 <14.0 IU/mL [facility] ACCOUNT BILL Blood BLOOD SPECIMEN / Unknown 03/11/2025 3:04 PM CDT 03/11/2025 Narrative [facility] ACCOUNT BILL - 03/12/2025 9:10 AM CDT Performed at: [address] [place] [id number] Sustain Engineer: Lele Higginbotham PhD, Phone: [phone] Isis Hassan MD LAB - CHEMISTRY ORDERABLES Final Result [facility] ACCOUNT BILL [address] [place] [address] * C-REACTIVE PROTEIN (03/11/2025 3:04 PM CDT) Pathologist [facility] C-Reactive Protein 1 0 - 10 mg/L [facility] ACCOUNT BILL Blood BLOOD SPECIMEN / Unknown 03/11/2025 3:04 PM CDT 03/11/2025 Narrative [facility] ACCOUNT BILL - 03/12/2025 9:10 AM CDT Performed at: - [facility] [address] [id number] Sustain Engineer: Lele Higginbotham PhD, Phone: [phone] Isis Hassan MD LAB - CHEMISTRY ORDERABLES Final Result Performing Organization Address [facility] Co de Phone Number [facility] ACCOUNT BILL [address] [place] [address] * VASQUEZ BLOOD SCREEN W/REFLEX TITER (03/11/2025 3:04 PM CDT) Pathologist [facility] VASQUEZ Negative [facility] ACCOUNT BILL Comment: Negative <1:80 Borderline 1:80 Positive >1:80 ICAP nomenclature: AC-0 For more information about Hep-2 cell patterns use ANApatterns.org, the official website for the International Consensus on Antinuclear Antibody (VASQUEZ) Patterns (ICAP). Blood BLOOD SPECIMEN / Unknown 03/11/2025 3:04 PM CDT 03/11/2025 Narrative [facility] ACCOUNT BILL - 03/15/2025 3:09 PM CDT Performed at: - [facility] [id number] Sustain Engineer: Lele Higginbotham PhD, Phone: [phone] Isis Hassan MD LAB - CHEMISTRY ORDERABLES Final Result Performing Organization Address City/[facility] Co de Phone Number [facility] ACCOUNT BILL [address] [place] [address] * ERYTHROCYTE SEDIMENTATION RATE (03/11/2025 3:04 PM CDT) Pathologist [facility] Erythrocyte Sedimentation Rate Westergren 11 0 - 32 mm/hr [facility] ACCOUNT BILL Blood BLOOD SPECIMEN / Unknown 03/11/2025 3:04 PM CDT 03/11/2025 Narrative [facility] ACCOUNT BILL - 03/12/2025 7:09 AM CDT Performed at: 01 - [address], [place], [place] [id number] Sustain Engineer: Lele Higginbotham PhD, Phone: [phone] Isis Hassan MD LAB - HEMATOLOGY ORDERABLES Connie l Result [facility] ACCOUNT BILL [address] [place] [address] * (ABNORMAL) CBC WITH DIFFERENTIAL (03/11/2025 3:04 PM CDT) WBC 10.1 3.4 - 10.8 x10E3/uL [facility] ACCOUNT BILL RBC 4.51 3.77 - 5.28 x10E6/uL [facility] ACCOUNT BILL Hemoglobin 13.7 11.1 - 15.9 g/dL [facility] ACCOUNT BILL Hematocrit 42.4 34.0 - 46.6 % [facility] ACCOUNT BILL MCV 94 79 - 97 fL [facility] ACCOUNT BILL MCH 30.4 26.6 - 33.0 pg [facility] ACCOUNT BILL MCHC 32.3 31.5 - 35.7 g/dL [facility] ACCOUNT BILL RDW 12.3 11.7 - 15.4 % [facility] ACCOUNT BILL Platelet Count 371 150 - 450 x10E3/uL [facility] ACCOUNT BILL Granulocytes % 74 Not Estab. % [facility] ACCOUNT BILL Lymphocytes % 18 Not Estab. % [facility] ACCOUNT BILL Monocytes % 6 Not Estab. % [facility] ACCOUNT BILL Eosinophils % 1 Not Estab. % [facility] ACCOUNT BILL Basophils % 1 Not Estab. % [facility] ACCOUNT BILL Granulocytes Absolute 7.5(H) 1.4 - 7.0 x10E3/uL [facility] ACCOUNT BILL Lymphocytes Absolute 1.9 0.7 - 3.1 x10E3/uL [facility] ACCOUNT BILL Monocytes Absolute 0.6 0.1 - 0.9 x10E3/uL [facility] ACCOUNT BILL Eosinophils Absolute 0.1 0.0 - 0.4 x10E3/uL [facility] ACCOUNT BILL Basophils Absolute 0.1 0.0 - 0.2 x10E3/uL [facility] ACCOUNT BILL Immature Granulocytes 0 Not Estab. % [facility] ACCOUNT BILL Immature Granulocytes Absolute 0.0 0.0 - 0.1 x10E3/uL [facility] ACCOUNT BILL Blood BLOOD SPECIMEN / Unknown 03/11/2025 3:04 PM CDT 03/11/2025 Narrative [facility] ACCOUNT BILL - 03/12/2025 7:09 AM CDT Performed at: 01 - [facility] [id number] Sustain Engineer: Lele Higginbotham PhD, Phone: [phone] Isis Hassan MD LAB - HEMATOLOGY ORDERABLES Connie barrios Result [facility] ACCOUNT BILL [address] [place] [address] * COMPREHENSIVE METABOLIC PANEL (03/11/2025 3:04 PM CDT) Glucose 85 70 - 99 mg/dL [facility] ACCOUNT BILL BUN 8 6 - 24 mg/dL [facility] ACCOUNT BILL Creatinine 0.71 0.57 - 1.00 mg/dL [facility] ACCOUNT BILL eGFR by CKD-EPI 110 >59 mL/min/1.7 3 [facility] ACCOUNT BILL BUN/Creatinine Ratio 11 9 - 23 [facility] ACCOUNT BILL Sodium 137 134 - 144 mmol/L [facility] ACCOUNT BILL Potassium 4.1 3.5 - 5.2 mmol/L [facility] ACCOUNT BILL Chloride 101 96 - 106 mmol/L [facility] ACCOUNT BILL CO2 22 20 - 29 mmol/L [facility] ACCOUNT BILL Calcium 9.3 8.7 - 10.2 mg/dL [facility] ACCOUNT BILL Protein Total 6.8 6.0 - 8.5 g/dL [facility] ACCOUNT BILL Albumin 4.6 3.9 - 4.9 g/dL [facility] ACCOUNT BILL Globulin Total 2.2 1.5 - 4.5 g/dL [facility] ACCOUNT BILL Bilirubin Total 0.4 0.0 - 1.2 mg/dL [facility] ACCOUNT BILL Alkaline Phosphatase 60 44 - 121 IU/L [facility] ACCOUNT BILL AST 15 0 - 40 IU/L [facility] ACCOUNT BILL ALT 14 0 - 32 IU/L [facility] ACCOUNT BILL Blood BLOOD SPECIMEN / Unknown 03/11/2025 3:04 PM CDT 03/11/2025 Narrative [facility] ACCOUNT BILL - 03/12/2025 7:09 AM CDT Performed at: 01 - [facility] [id number] Sustain Engineer: Lele Higginbotham PhD, Phone: [phone] Isis Hassan MD LAB - CHEMISTRY ORDERABLES Final Result Performing Organization Address City/[facility]/ZIP Co de Phone Number [facility] ACCOUNT BILL [address] [place] [address] * CK BLOOD (03/11/2025 3:04 PM CDT) CK 65 32 - 182 U/L [facility] ACCOUNT BILL Blood BLOOD SPECIMEN / Unknown 03/11/2025 3:04 PM CDT 03/11/2025 Narrative [facility] ACCOUNT BILL - 03/12/2025 8:11 AM CDT Performed at: [facility] [id number] Sustain Engineer: Lele Higginbotham PhD, Phone: [phone] Isis Hassan MD LAB - CHEMISTRY ORDERABLES Final Result Performing Organization Address City/[facility]/ZIP Co de Phone Number [facility] ACCOUNT BILL [address] [place] [address] * COMPLEMENT C3 C4 PANEL (03/11/2025 3:04 PM CDT) Complement C3 104 82 - 167 mg/dL [facility] ACCOUNT BILL Complement C4 20 12 - 38 mg/dL [facility] ACCOUNT BILL Blood BLOOD SPECIMEN / Unknown 03/11/2025 3:04 PM CDT 03/11/2025 Narrative [facility] ACCOUNT BILL - 03/12/2025 9:10 AM CDT Performed at: 01 - [address] [id number] Sustain Engineer: Lele Higginbotham PhD, Phone: [phone] Isis Hassan MD LAB - CHEMISTRY ORDERABLES Final Result [facility]OUNT [place] [address] [place] [address] * XR SI Joints 3Vw or More (03/11/2025 2:59 PM CDT) Anatomical Region Laterality Modality Pelvis, Lower Extremity Radiogra phic Imaging 03/11/2025 3:08 PM CDT Narrative 03/11/2025 3:08 PM CDT PROCEDURE(s): XR SI JOINTS 3VW OR MORE DATE AND TIME OF EXAM(s): 03/11/2025 2:59 PM INDICATION(s): M54.50: Low back pain, unspecified COMPARISON(s): None available. FINDINGS/IMPRESSION: Joint spaces are maintained. No acute fracture or dislocation. IUD is noted. > Interpreting Provider: Adam Ortega MD on 03/11/2025 3:08 PM Procedure Note Adam Ortega MD - 03/11/2025 PROCEDURE(s): XR SI JOINTS 3VW OR MORE DATE AND TIME OF EXAM(s): 03/11/2025 2:59 PM INDICATION(s): M54.50: Low back pain, unspecified COMPARISON(s): None available. FINDINGS/IMPRESSION: Joint spaces are maintained. No acute fracture or dislocation. IUD is noted. > Interpreting Provider: Adam Ortega MD on 03/11/2025 3:08 PM Isis Hassan MD DIAGNOSTIC IMAGING ORDERABLES Fi nal Result * XR Pelvis W Bilat Hip 2Vw (03/11/2025 2:58 PM CDT) Anatomical Region Laterality Modality Pelvis, Lower Extremity Radiogra phic Imaging 03/11/2025 3:07 PM CDT Narrative 03/11/2025 3:07 PM CDT PROCEDURE(s): XR PELVIS W BILAT HIP 2VW DATE AND TIME OF EXAM(s): 03/11/2025 2:59 PM INDICATION(s): M54.50: Low back pain, unspecified COMPARISON(s): None available. FINDINGS/IMPRESSION: No acute fracture or dislocation. Joint spaces are maintained. > Interpreting Provider: Adam Ortega MD on 03/11/2025 3:07 PM Procedure Note Adam Ortega MD - 03/11/2025 PROCEDURE(s): XR PELVIS W BILAT HIP 2VW DATE AND TIME OF EXAM(s): 03/11/2025 2:59 PM INDICATION(s): M54.50: Low back pain, unspecified COMPARISON(s): None available. FINDINGS/IMPRESSION: No acute fracture or dislocation. Joint spaces are maintained. > Interpreting Provider: Adam Ortega MD on 03/11/2025 3:07 PM Isis Hassan MD DIAGNOSTIC IMAGING ORDERABLES Fi nal Result * XR Lumbar Spine 2 or 3Vw (03/11/2025 2:58 PM CDT) Anatomical Region Laterality Modality Spine Radiographic Aretha ging 03/11/2025 3:08 PM CDT Narrative 03/11/2025 3:08 PM CDT PROCEDURE(s): XR LUMBAR SPINE 2 OR 3VW DATE AND TIME OF EXAM(s): 03/11/2025 2:58 PM INDICATION(s): M54.50: Low back pain, unspecified COMPARISON(s): None available. FINDINGS/IMPRESSION: Straightening of the lumbar spine. No acute fracture or dislocation. Intervertebral disc space are maintained. Degenerative changes of the posterior elements the lumbar spine. An intrauterine device is noted. > Interpreting Provider: Adam Ortega MD on 03/11/2025 3:08 PM Procedure Note Adam Ortega MD - 03/11/2025 PROCEDURE(s): XR LUMBAR SPINE 2 OR 3VW DATE AND TIME OF EXAM(s): 03/11/2025 2:58 PM INDICATION(s): M54.50: Low back pain, unspecified COMPARISON(s): None available. FINDINGS/IMPRESSION: Straightening of the lumbar spine. No acute fracture or dislocation. Intervertebral disc space are maintained. Degenerative changes of the posterior elements the lumbar spine. An intrauterine device is noted. > Interpreting Provider: Adam Ortega MD on 03/11/2025 3:08 PM Isis Hassan MD DIAGNOSTIC IMAGING ORDERABLES Fi nal Result from Last 3 Months Insurance [facility] Address: [address] [place] [address] Care Teams Medical Reception Relationship Specialty Start Date End Date Celestina Overton, MASS SPEC-PROPERTY DEVELOPER [address] [place] [address] PCP - General Nurse Practitioner Family 03/11/25
--- OUTSIDE RECORDS SUMMARY | 2025-05-09 15:22 | XMS_ITS | Encounter Summary ---
Author Organization [facility] Address [address] [place] [address] Care Team Providers Care Malt House Loader Name Role Phone Celestina Overton NP Primary Care Provider [phone] Encounter Details Date Type Department Care Team (Late st Contact Info) Description 08/03/2024 Exhibia Message Enc [facility] Medical Group Family & Internal Medicine [facility] [id number] [place] [phone] [place] [address] [address] Famotidine Social History Tobacco Use [...] CDT Gender Identity Female 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 [address] PCP - General Nurse Practitioner Family 04/26/24 documented as of this encounter
--- OUTSIDE RECORDS SUMMARY | 2025-05-09 15:22 | XMS_ITS | Encounter Summary ---
Author Organization [facility] Address [address] [place] [address] Care Team Providers Care Assembler Faucets Name Role Phone Charu Batista MD Primary Care Provider + [phone] Lj Jones MD Primary Care Pr Celestina Garcia NP Primary Care Provider + [phone] Encounter Details Date Type Department Care Team (Late st Contact Info) Description 06/05/2022 Accruent Message Enc [facility] Medical Group Family & Internal Medicine [facility] [id number] [place] [phone] Charu Batista MD [address] [place] [address] Option for suspected UTI Social History [...] CDT Gender Identity Female 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
--- OUTSIDE RECORDS SUMMARY | 2025-05-09 15:22 | XMS_ITS | Encounter Summary ---
Author Organization [facility] Address [address] [place] [address] Care Team Providers Care Voice Pathologist Name Role Phone Celestina Overton APRN-COMMERCIAL DOOR INSTALLER Primary Care Provider Encounter Details Date Type Department Care Team (Late Contact Info) Description 03/12/2025 Results Follow-Up [facility] Medical [facility] - Rheumatology [address] [place] [address] Isis Hassan MD [address] [place] [phone] Social History Tobacco Use Types Packs/Day Years Used Date Smoking Tobacco: Never Assessed Comments Unknown Sex and Gender Information Value Date Recorded Sex Assigned at Not on file Legal Sex Female 9:16 AM CDT Gender Identity Not on file Sexual Orientation Not on file documented as of this encounter Plan of Treatment Upcoming Encounters Date Type Department Care Team (Late Contact Info) Description 05/11/2025 1:00 PM CDT Office Visit [facility] - Allergy [address] [place] [address], [place] [phone] Mike Callaway MD [address] [place] [address] DIV [place]ERGY/[place] [address] documented as of this encounter Visit Diagnoses Not on filedocumented in this encounter Care Teams Voice Pathologist Relationship Specialty Start Date End Date Celestina Overton APRN-COMMERCIAL DOOR INSTALLER [address] [place] [phone] PCP - General Nurse Practitioner Family 03/11/25 documented as of this encounter
--- OUTSIDE RECORDS SUMMARY | 2025-05-09 15:22 | XMS_ITS | Encounter Summary ---
Author Organization [facility] Address [address] [place] [address] Care Team Providers Care Glycerin Supervisor Name Role Phone Celestina Overton NP Primary Care Provider [phone] Encounter Details Date Type Department Care Team (Late st Contact Info) Description 01/03/2025 PRX Message Enc [facility] Medical Group Family & Internal Medicine [facility] [id number] [place] [phone] Cel[place] [id number] [place] [address] [place] [address] FMLA Social History Tobacco Use Types Packs/Day Years [...] CDT Gender Identity Female 11/06/2021 7:23 AM BELT GLASS SANDER Sexual Orientation Straight 11/06/2021 7: 23 AM BELT GLASS SANDER documented as of this encounter Plan of Treatment Not on file documented as of this encounter Visit Diagnoses Not on filedocumented in this encounter Additional Health Concerns Assessment Noted Time PHQ-9 Depression Total Score: 0 08/20/20 24 1:41 PM CDT documented as of this encounter Care Teams Glycerin Supervisor Relationship Specialty [place] [address] [place] [address] PCP - General Nurse Practitioner Family 04/26/24 documented as of this encounter
--- OUTSIDE RECORDS SUMMARY | 2025-05-09 15:22 | XMS_ITS | Encounter Summary ---
Author Organization [facility] Address [address] [place] [address] Care Team Providers Care Municipal Maintenance Worker Name Role Phone Celestina Overton SCRATCHER-HUSBANDRY TECHNICIAN Primary Care Provider Encounter Details Date Type Department Care Team (Late Contact Info) Description 05/06/2025 Lab Requisition [facility] DermPath Lab [address] [facility] [place] [phone] Robin Downey MD [facility] DERMATOLOGY [address] [place] [phone] Social History Tobacco Use Types Packs/Day Years Used Date Smoking Tobacco: Never Assessed Comments Unknown Sex and Gender Information Value Date Recorded Sex Assigned at Not on file Legal Sex Female 9:16 AM CDT Gender Identity Not on file Sexual Orientation Not on file documented as of this encounter Plan of Treatment Upcoming Encounters Date Type Department Care Team ([facility] Contact Info) Description 05/11/2025 1:00 PM CDT Office Visit [facility] - Allergy [address] [facility] [place] [phone] Mike Callaway MD [address] [place] [address] OF ALLERGY/[place] [address] Pending Results Name Type Priority Associated Diagnoses Date /Time DERMATOPATHOLOGY Pathology Cytology Routine 05/03/2025 12:00 AM CDT documented as of this encounter Visit Diagnoses Not on filedocumented in this encounter Care Teams Municipal Maintenance Worker Relationship Specialty Start Date End Date Celestina Overton, BONITA-HUSBANDRY TECHNICIAN [address] [place] [address] PCP - General Nurse Practitioner Family 03/11/25 documented as of this encounter
--- OUTSIDE RECORDS SUMMARY | 2025-05-09 15:22 | XMS_ITS | Clinical Summary ---
Author Organization [facility] Address [facility] [place] [address] Care Team Providers Care Body Mechanic Apprentice Name Role Phone Scott Overton BIOENGINEER Primary Care Provider [phone] Allergies Active Allergy Reactions Criticality Noted Date Comments Sulfacetamide Hives Medium 01/06/2015 Tape Contact Dermatitis Low 04/30/2024 Medications MIRENA, 52 MG, 20 MCG/24HR IUD 0 Active PROZAC 20 MG capsule Take 1 capsule (20 mg total) by mouth daily. 4 Active ondansetron (ZOFRAN-ODT) 4 MG disintegrating tablet Take 1 tablet (4 mg total) by mouth every 8 (eight) hours as needed for Nausea. 5 Active traZODone (DESYREL) 100 MG tabletIndications:P rimary insomnia,Depression with anxiety Take 1 tablet (100 mg total) by mouth nightly at bedtime. 30 tablet 2 5 Active omeprazole (PRILOSEC) 40 MG capsuleIndications: Gastroesophageal reflux disease with esophagitis without hemorrhage Take 1 capsule (40 mg total) by mouth daily. 90 capsule 3 5 Active vitamin D3 (CHOLECALCIFEROL) 1.25 mg capsuleIndications: Vitamin D deficiency Take 1 capsule (50,000 Units total) by mouth once a week. 12 capsule 1 5 Active Active Problems Problem Noted Date Diagnosed Date Granulomatous [facility]CC) Nausea and vomiting, unspecified vomiting type 1 10/20/2023 Acid reflux 08/20/2024 Epigastric pain 08/20/2024 Gastroesophageal reflux disease without esophagi tis 07/30/2024 Left wrist pain 03/03/2021 Night muscle spasms 11/24/2020 Insomnia 07/13/2015 Depression with anxiety 01/06/2015 Resolved Problems Problem Noted Date Diagnosed Date Resolved Date Adult acne 07/13/2015 04/30/2024 Vaginal candidiasis 07/13/2015 07/30/20 24 Encounters Date Type Department Care Team Description 05/03/2025 Scan [employer] INFO SRVCS Scanned, Doc Med Group 05/03/2025 MyChart Message Enc [facility] & Internal [address] [phone] Scott Overton NP Spiranolactone question 02/28/2025 MyChart Message Enc [facility] Internal [address] [phone] results 02/14/2025 3:17 PM CDT - 02/14/2025 11:59 PM CDT Hospital [place] [address] [place], [place] [phone] Scott Overton NP Discharge Disposition: Home or Self Care (Routine Discharge) 02/14/2025 Travel 02/08/2025 Results Follow-Up [facility] Internal [address] [phone] Scott Overton NP XR HAND RT 3V, XR KNEE LT 3V, XR KNEE RT 3V, Additional followed-up results: 12 from Last 3 Months Immunizations Immunization Administration Dates Next Due Fluzone (IIV3, Trivalent, [...] Abuse Mother None Mother Thyroid Disease Mother Alcohol Abuse Paternal Grandfather Relation Status Comments Brother Father Maternal Grandmother Mother Paternal Grandfather Alive Social History Tobacco Use Types Packs/Day Years Used Date Smoking Tobacco: Former Cigarettes Q uit: 2009 Smokeless Tobacco: Never Tobacco Cessation:Counseling Given: No Alcohol Use Standard Drinks/Week Comments Not Currently [...] CDT Gender Identity Female 11/06/2021 7:23 AM ASSORTER Sexual Orientation Straight 11/06/2021 7: 23 AM ASSORTER Last Filed Vital Signs Vital Sign Reading Time Taken Comments Blood Pressure 113/81 02/04/2025 9:33 AM CDT Pulse 82 02/04/2025 9:33 AM CDT Temperature 37.1 C (98.7 F) 02/04/2025 9:33 AM CDT Respiratory Rate 16 02/04/2025 9:33 AM CDT Oxygen Saturation 96% 02/04/2025 9:33 AM CDT Inhaled Oxygen Concentration - - Weight 76.4 kg (168 lb 6.4 oz) 02/04/2025 9:33 A M CDT Height 165.1 cm (5' 5) 02/04/2025 9:33 AM CDT Body Mass Index 28.02 02/04/2025 9:33 AM CDT Plan of Treatment Health Maintenance Due Date Last Done Comments Annual Physical 1987 Hepatitis B Vaccines (1 of 3 - 19+ 3-dose series) 2003 HPV Vaccines (1 - 3-dose SCDM series) 2011 DTaP, Tdap and Td Vaccines (1 - Tdap) 10/30/2011 10/29/2011, 10/29/2011 Cervical Cancer Screening Pap with HPV Testing (Age 30 to 64) Every 5 Years 2014 Cervical Cancer Screening Pap Smear (Age 30 to 64) Every 3 Years 01/06/2018 01/06/2015 Cervical Cancer Screening with HPV 01/06/2018 Mammogram Screening 02/21/2025 02/21/2023 Hepatitis C Completed 06/12/2021 COVID-19 Vaccine Completed 07/30/2024, , 09/25/2021, Additional history exists PHQ-2 ([facility]) Completed 02/04/2025 Meningococcal B Vaccine Aged Out No l onger eligible based on patient's age to complete this topic Meningococcal Vaccine Aged Out No nato catina eligible based on patient's age to complete this topic Pneumococcal Vaccine: Pediatrics (0 to 5 Years) and At-Risk Patients (6 to 49 Years) Aged Out No longer eligible based on patient's age to complete this topic RSV Immunizations Under 20 Months Aged Out No longer eligible based on patient's age to complete this topic Procedures Procedure Name Priority Date/Time Associated Diagnosis Comments CT CHEST WWO CON Routine 02/14/2025 4:16 PM CDT Granulomatous lung disease (CMS/HCC HHS/HCC) CREATININE W/GFR Routine 02/14/2025 3:53 PM CDT MAMMOGRAM GENERIC (SCAN ORDER) 02/21/2023 HEPATITIS C ANTIBODY W/RFX TO HCV RNA 06/12/2021 12:23 PM CDT OUTSIDE CYTOPATH CERV/VAG INTERPRET (PAP) (SCAN ORDER) Routine 01/06/2015 12:00 AM CDT from Last 3 Months or Most Recently Relevant to Health Maintenance Results * CT CHEST WWO CON (02/14/2025 4:16 PM CDT) Anatomical Region Laterality Modality Chest Computed Tomogra phy 02/25/2025 11:4 2 AM CDT Impressions 02/25/2025 11:49 AM CDT Impression: Old scarring and surgical change at the right lung-pleura apex. Mild volume loss of the right lung, with mild elevation of the right hemidiaphragm, similar to the 2011 x-ray. Old granulomatous calcifications in the lymph nodes and lungs. No suspicious lung nodule or mass. No acute lung or pleural finding. No adenopathy. Referred By: SCOTT OVERTON Interpreted By: Michael Davis MD, 02/25/2025 11:42 AM Narrative 02/25/2025 11:49 AM CDT [facility] [address] [facility] [place] [address] Examination: CT chest with and without IV contrast. Clinical Information: Surgical changes in the right lung apex. Abnormal prior CT scan. Granulomatous disease of the lung seen on prior CT in December 2024.* Comparison: 12/29/2024 CT. Chest x-ray 07/18/2011. Technique: IV contrast: 80 mL of Isovue-370. Technical comments: Standard technique. Dose reduction: This CT exam was performed using one or more of the following dose reduction techniques: Automated exposure control, adjustment of the mA and/or kV according to patient size, and/or use of iterative reconstruction technique. Findings: MEDIASTINUM Support tubes and lines: None. Base of neck/thyroid: Negative. Heart: Normal in size. No pericardial effusion. Lymph nodes: Thick old calcifications. No acute adenopathy. VASCULATURE No aortic stenosis or aneurysm or dissection. Patent aortic arch and branches. Patent bilateral common carotid, vertebral, and subclavian arteries. Patent celiac, superior mesenteric, and renal arteries. No pulmonary artery dilatation or embolism. LUNGS AND PLEURA Lungs: Scar/postoperative thickening and suture in the right lung-pleural apex. Asymmetric elevation of right hemidiaphragm from the right lung volume loss. Old granulomata. No suspicious lung nodule or mass. No infiltrates or consolidation. Mild hypoventilatory changes dependently in the posterior lung. Pleura: No effusion or pneumothorax. UPPER ABDOMEN Prominent spleen size, nonspecific. No fatty change or cirrhosis of the liver. No mass or acute finding. No ascites. BONES/SOFT TISSUES No significant lesion. Degenerative changes. Procedure Note Michael Davis MD - 02/25/2025 [facility] [address] [place] [address] Examination: CT chest with and without IV contrast. Clinical Information: Surgical changes in the right lung apex. Abnormalprior CT scan. [facility] Comparison: 12/29/2024 CT. Chest x-ray 07/18/2011. Technique: IV contrast: 80 mL of Isovue-370. Technical comments: Standard technique. Dose reduction: This CT exam was performed using one or more of thefollowing dose reduction techniques: Automated exposure control,adjustment of the mA and/or kV according to patient size, and/or use ofiterative reconstruction technique. Findings: MEDIASTINUM Support tubes and lines: None. Base of neck/thyroid: Negative. Heart: Normal in size. No pericardial effusion. Lymph nodes: Thick old calcifications. No acute adenopathy. VASCULATURE No aortic stenosis or aneurysm or dissection. Patent aortic arch andbranches. Patent bilateral common carotid, vertebral, and subclavianarteries. Patent celiac, superior mesenteric, and renal arteries. No pulmonary artery dilatation or embolism. LUNGS AND PLEURA Lungs: Scar/postoperative thickening and suture in the right lung-pleuralapex. Asymmetric elevation of right hemidiaphragm from the right lungvolume loss. Old granulomata. No suspicious lung nodule or mass. Noinfiltrates or consolidation. Mild hypoventilatory changes dependently inthe posterior lung. Pleura: No effusion or pneumothorax. UPPER ABDOMEN Prominent spleen size, nonspecific. No fatty change or cirrhosis of theliver. No mass or acute finding. No ascites. BONES/SOFT TISSUES No significant lesion. Degenerative changes. Impression: Old scarring and surgical change at the right lung-pleura apex. Mildvolume loss of the right lung, with mild elevation of the righthemidiaphragm, similar to the 2011 x-ray. Old granulomatous calcifications in the lymph nodes and lungs. No suspicious lung nodule or mass. No acute lung or pleural finding. No adenopathy. Referred By: SCOTT OVERTON Interpreted By: Michael Davis MD, 02/25/2025 11:42 AM us Scott Overton BIOENGINEER CT Final Result * CREATININE W/GFR (02/14/2025 3:53 PM CDT) CREATININE WHOLE BLOOD 0.7 0.6 - 1.3 mg/dL 02/14/2025 4:10 PM CDT [facility] GFR ESTIMATE >90 >90 ml/min/1.7 3 m2 02/14/2025 4:10 PM CDT [facility] 02/14/2025 3:53 PM CDT Scott Overton BIOENGINEER POINT OF CARE TEST ORDERABLE S Final Result Performing Organization Address City/State/[facility] Co de Phone Number [facility] [address] [place] [address], [place] [phone] * MAMMOGRAM GENERIC (02/21/2023) Anatomical Region Laterality [...] - 06/15/2021 9:35 AM CDT Performed at: [address] [place] [id number] Coffee Machine Technician: Lele Higginbotham PhD, Phone: [phone] us Charu Batista MD LABORATORY Final Result [facility] [address] [place] [address] [facility] 1 * PAP SMEAR (01/06/2015 12:00 AM CDT) 01/06/2015 us Documents Scanned SCANNING Final Result [facility] from Last 3 Months or Most Recently Relevant to Health Maintenance Insurance [employer] OPEN ACCESS [facility] Care Teams Body Mechanic Apprentice Relationship Specialty [place] [address] [facility] [address] [place] [address] PCP - General Nurse Practitioner Family 04/26/24
--- OUTSIDE RECORDS SUMMARY | 2025-05-09 15:22 | XMS_ITS | Encounter Summary ---
Author Organization [facility] Address [address] [place] [address] Care Team Providers Care Him Assistant Name Role Phone Charu Batista MD Primary Care Provider + [phone] Lj Jones MD Primary Care Pr Celestina Garcia NP Primary Care Provider + [phone] Encounter Details Date Type Department Care Team (Late st Contact Info) Description 05/02/2021 Jinnit Message Enc [facility] Medical Group Family & Internal Medicine [facility] [phone] [place] [phone] Charu Batista MD [address] [place] [address] RE: Question Social History Tobacco Use [...] CDT Gender Identity Female 11/06/2021 7:23 AM SOCIAL CONTACT WORKER Sexual Orientation Straight 11/06/2021 7: 23 AM SOCIAL CONTACT WORKER documented as of this encounter Progress Notes * Sienna Galdamez MA - 05/03/2021 8:53 AM CDT Please advise documented in this encounter Plan of Treatment Not on file documented as of this encounter Visit Diagnoses Not on filedocumented in this encounter Care Teams Him Assistant Relationship Specialty Start Date End Date Charu Batista MD PCP - General 06/01/12 01/23/23 Lj Jones MD PCP - General FAMILY PRACTICE 01/24/23 04/25/24 [place] [address] [facility] [address] [place] [address] PCP - General Nurse Practitioner Family 04/26/24 documented as of this encounter
--- OUTSIDE RECORDS SUMMARY | 2025-05-09 15:22 | XMS_ITS | Encounter Summary ---
Author Organization [facility] Address [address] [place] [address] Care Team Providers Care Table Assembler Metal Name Role Phone Celestina Overton NP Primary Care Provider [phone] Encounter Details Date Type Department Care Team (Late st Contact Info) Description 06/22/2024 Pre Play Sports Message Enc [facility] Medical Group Family & Internal Medicine [facility] [address] [place] [phone] Celest[place] Overton [place] [address] [place] [address] [place] [address] Covid positive Social History Tobacco Use [...] CDT Gender Identity Female 11/06/2021 7:23 AM PUBLIC HEALTH SANITARIAN Sexual Orientation Straight 11/06/2021 7: 23 AM PUBLIC HEALTH SANITARIAN documented as of this encounter Plan of Treatment Not on file documented as of this encounter Visit Diagnoses Not on filedocumented in this encounter Additional Health Concerns Assessment Noted Time PHQ-9 Depression Total Score: 6 04/30/20 24 11:16 AM CDT documented as of this encounter Care Teams Table Assembler Metal Relationship Specialty Start Date End Date Celestina Overton, MICKEY [address] [place] [address] PCP - General Nurse Practitioner Family 04/26/24 documented as of this encounter
--- OUTSIDE RECORDS SUMMARY | 2025-05-09 15:22 | XMS_ITS | Encounter Summary ---
Author Organization [facility] Address [address] [place] [address] Care Team Providers Care Coal Yard Supervisor Name Role Phone Celestina Overton NP Primary Care Provider + [phone] Encounter Details Date Type Department Care Team (Latest Contact Info) Description 05/03/2025 Scan [facility] INFO SRVCS Scanned, Doc Med Group Social History Tobacco Use Types Packs/Day Years [...] CDT Gender Identity Female 11/06/2021 7:23 AM NEIGHBORHOOD PLANNER Sexual Orientation Straight 11/06/2021 7: 23 AM NEIGHBORHOOD PLANNER documented as of this encounter Plan of Treatment Not on file documented as of this encounter Visit Diagnoses Not on filedocumented in this encounter Additional Health Concerns Assessment Noted Time PHQ-9 Depression Total Score: 0 08/20/20 24 1:41 PM CDT documented as of this encounter Care Teams Coal Yard Supervisor Relationship Specialty [place] [address] [address] PCP - General Nurse Practitioner Family 04/26/24 documented as of this encounter
--- OUTSIDE RECORDS SUMMARY | 2025-05-09 15:22 | XMS_ITS | Encounter Summary ---
Author Organization [facility] Address [address] [place] [address] Care Team Providers Care Mural Artist Name Role Phone Charu Batista MD Primary Care Provider + [phone] Lj Jones MD Primary Care Pr Celestina Garcia NP Primary Care Provider + [phone] Encounter Details Date Type Department Care Team (Late st Contact Info) Description 01/02/2023 ItsMyURLst Message Enc [facility] Medical Group Family & Internal Medicine [facility] [address] [place] [phone] Charu Batista MD [address] [place] [address] Antibiotic Social History Tobacco Use Types [...] CDT Gender Identity Female 11/06/2021 7:23 AM TIMBER CRUISER Sexual Orientation Straight 11/06/2021 7: 23 AM TIMBER CRUISER documented as of this encounter Plan of Treatment Not on file documented as of this encounter Visit Diagnoses Not on filedocumented in this encounter Additional Health Concerns Assessment Noted Time PHQ-9 Depression Total Score: 4 11/20/19 23 11:21 AM TIMBER CRUISER documented as of this encounter Care Teams Mural Artist Relationship Specialty Start Date End Date Charu Batista MD PCP - General 06/01/12 01/23/23 Lj Jones MD PCP - General FAMILY PRACTICE 01/24/23 04/25/24 Celestina Overton, BALANCE STAFF STAKER [address] [address] PCP - General Nurse Practitioner Family 04/26/24 documented as of this encounter
--- OUTSIDE RECORDS SUMMARY | 2025-05-09 15:22 | XMS_ITS | Encounter Summary ---
Author Organization [facility] Address [address] [place] [address] Care Team Providers Care Advertising Job Titles Name Role Phone Celestina Overton NP Primary Care Provider [phone] Encounter Details Date Type Department Care Team (Late st Contact Info) Description 05/04/2024 Boomr Message Enc [facility] Medical Group Family & Internal Medicine [facility] [address] [place] [phone] Celest[place]ton [place] [phone] [place] [address] [place] [address] Uti? Social History Tobacco Use Types [...] CDT Gender Identity Female 11/06/2021 7:23 AM THEATRICAL DRESSER Sexual Orientation Straight 11/06/2021 7: 23 AM THEATRICAL DRESSER documented as of this encounter Plan of Treatment Not on file documented as of this encounter Visit Diagnoses Not on filedocumented in this encounter Additional Health Concerns Assessment Noted Time PHQ-9 Depression Total Score: 6 04/30/20 24 11:16 AM CDT documented as of this encounter Care Teams Advertising Job Titles Relationship Specialty Start Date End Date Celestina Overton, MICKEY [address] [place] [phone] PCP - General Nurse Practitioner Family 04/26/24 documented as of this encounter
--- OUTSIDE RECORDS SUMMARY | 2025-05-09 15:22 | XMS_ITS | Encounter Summary ---
Author Organization [facility] Address [address] [place] [address] Care Team Providers Care Business Computers Teacher Name Role Phone Charu Batista MD Primary Care Provider + [phone] Lj Jones MD Primary Care Pr Celestina Garcia NP Primary Care Provider + [phone] Encounter Details Date Type Department Care Team (Late st Contact Info) Description 10/22/2021 Cloakroomt Message Enc [facility] Family & Internal Medicine [facility] [id number] [place] [phone] Charu Batista MD [address] [place] [address] Med change updates Social History Tobacco [...] CDT Gender Identity Female 11/06/2021 7:23 AM AUTOMOTIVE LIGHT MECHANIC Sexual Orientation Straight 11/06/2021 7: 23 AM AUTOMOTIVE LIGHT MECHANIC documented as of this encounter Progress Notes * Lissette Mars - 10/23/2021 10:04 AM CST Left message to schedule appointment with Dr. Box to discuss medication. MOTIVE LIGHT MECHANIC documented in this encounter Plan of Treatment Not on file documented as of this encounter Visit Diagnoses Not on filedocumented in this encounter Care Teams Business Computers Teacher Relationship Specialty Start Date End Date Charu Batista MD PCP - General 06/01/12 01/23/23 Lj Jones MD PCP - General FAMILY PRACTICE 01/24/23 04/25/24 [place] [address] [address] PCP - General Nurse Practitioner Family 04/26/24 documented as of this encounter
== END 2025-05-09 15:19 | disposition home or self-care (01) ==
LOC: ANHIMG 15:19
PROVIDERS: PCP Nurse Practitioner Family; Visit Provider Obstetrics & Gynecology
DX: Z12.31 Encounter for screening mammogram for malignant neoplasm of breast (principal)
CPT/HCPCS: 77063; 77067

== ENCOUNTER 2025-06-07 10:17 | Outpatient (CLI) | payer OTHER, SELFPAY ==
--- NOTE | ~2025-06-07 | MMUS_ITS ---
EXAMINATION: MM diagnostic dusty RT w nubia, US breast RT limited HISTORY: Right breast asymmetry TECHNIQUE: Additional 3-D tomosynthesis images of the right breast were performed and synthetic 2-D images were generated. CAD analysis was submitted and interpreted. High resolution limited right breast ultrasound was performed. COMPARISON: 05/09/2025, 04/23/2024, 02/21/2023, 08/10/2020 BREAST PARENCHYMAL COMPOSITION:Not Dense. There are scattered areas of fibroglandular density. FINDINGS: MAMMOGRAPHIC FINDINGS: Spot compression views again demonstrate several adjacent/grouped small masslike lesions in the lower, inner right breast. ULTRASOUND: At the 4 clock position right breast, 5 cm from the nipple, there are a few small cysts present, with similar appearance overall to prior exam. No overtly suspicious mass present. Possible small hamartoma in this region. Findings are similar to prior exams. IMPRESSION: No definite evidence for malignancy. Stable cysts and possible hamartoma at the lower, inner right breast. BI-RADS Category 2: Benign finding(s). Reviewed, dictated and finalized at [facility]. IMPRESSION: No definite evidence for malignancy. Stable cysts and possible hamartoma at th e lower, inner right breast. BI-RADS Category 2: Benign finding(s).
--- OUTSIDE RECORDS SUMMARY | 2025-06-07 10:44 | XMS_ITS | Clinical Summary ---
Author Organization [facility] Address [address] [place] [address] Care Team Providers Care Neurodiagnostic Tech Name Role Phone Celestina Overton Julianna ENGINEERING DESIGNER-SANDAL PARTS ASSEMBLER Primary Care Provider Source Comments [facility],non-owned Affiliates and Associated Physician Practices is amultiple site organization consisting of ambulatory clinics and hospital sitesin [place], [place], [place] and [place]. This disclosure is being madepursuant to the Care Everywhere program and may not contain all information available regarding this patient. 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 Overview (05/11/2025): Iatrogenic right Ochoa's syndrome after chest tube for spontaneous pneumothorax 2009 Positive VASQUEZ (antinuclear antibody) 05/11/2025 Anxiety and depression 05/11/2025 Diverticulosis 05/11/2025 Sciatica 05/11/2025 GERD (gastroesophageal reflux disease) Arthralgia 05/11/2025 Resolved Problems Problem Noted Date Diagnosed Date Resolved Date Spontaneous pneumothorax 05/11/2025 Overview (05/11/2025): History of spontaneous PTX in 2010 Encounters Date Type Department Care Team Description 05/11/2025 1:00 PM CDT Office Visit [facility] - Allergy [address] [place] [address] Mike Callaway MD Recurrent infections (Primary Dx); Allergic rhinitis, unspecified seasonality, unspecified trigger; Allergic conjunctivitis of both eyes; Cough, unspecified type; Mild intermittent asthma without complication ([facility]) 05/11/2025 Travel 05/06/2025 Lab Requisition [facility] - DermPath Lab [address] [place] [address] Robin Downey MD 03/18/2025 Travel 03/12/2025 Results Follow-Up [facility] - Rheumatology [address] [place] [address] Isis Hassan MD 03/11/2025 2:39 PM CDT - 03/11/2025 11:59 PM CDT Hospital Encounter [facility] - Medical Imaging [address] [place] [address] Isis Hassan MD Discharge Disposition: Home or Self Care 03/11/2025 2:39 PM CDT - 03/11/2025 11:59 PM CDT Hospital Encounter [facility] - Medical Imaging [address] [place] [address] Isis Hassan MD Discharge Disposition: Home or Self Care 03/11/2025 2:39 PM CDT - 03/11/2025 11:59 PM CDT Hospital Encounter [facility] - Medical Imaging [address] [place] [address] Isis Hassan MD Discharge Disposition: Home or Self Care 03/11/2025 2:13 PM CDT - 03/11/2025 2:38 PM CDT Hospital Encounter [facility] Urgent [facility] - Medical Imaging [address] [place] [address] Isis Hassan MD Discharge Disposition: Home or Self Care 03/11/2025 1:00 PM CDT Office Visit [facility] - Rheumatology [address] [place] [address] Isis Hassan MD Recurrent infections (Primary Dx); Polyarthralgia; Low back pain, unspecified back pain laterality, unspecified chronicity, unspecified whether sciatica present 03/11/2025 Travel from Last 3 Months Social History Tobacco Use Types Packs/Day Years Used Date Smoking Tobacco: Never Assessed PHQ-2 Answer Date Recorded Patient Health Questionnaire-2 Score 0 05/11/2025 Comments Unknown Sex and Gender Information Value Date Recorded Sex Assigned at Not on file Legal Sex Female 9:16 AM CDT Gender Identity Not on file Sexual Orientation Not on file Last Filed Vital Signs Vital Sign Reading Time Taken Comments Blood Pressure 108/74 05/11/2025 1:03 PM CDT Pulse 63 05/11/2025 1:03 PM CDT Temperature 37.2 C (98.9 F) 05/11/2025 1:03 PM CDT Respiratory Rate - - Oxygen Saturation 97% 05/11/2025 1:03 PM CDT Inhaled Oxygen Concentration - - Weight 79.1 kg (174 lb 6.4 oz) 05/11/2025 1:03 P M CDT Height 162.6 cm (5' 4) 05/11/2025 1:03 PM CDT Body Mass Index 29.94 05/11/2025 1:03 PM CDT Plan of Treatment Upcoming Encounters Date Type Department Care Team (Late st Contact Info) Description 07/21/2025 7:30 AM CDT Appointment [facility] PFT [address] [place] [address] 11/10/2025 3:30 PM FOUNDER AND CEO Office Visit [facility] - Allergy [address] [facility], [place] [phone] Mike Callaway MD [address] DIV OF ALLERGY/[place] [address] Health Maintenance Due Date Last Done Comments LIPID TESTING 1984 HIV SCREENING 1999 DTAP/TDAP/TD VACCINES (1 - Tdap) 2003 HEPATITIS B VACCINE (1 of 3 - 19+ 3-dose series) 2003 PNEUMOCOCCAL VACCINE (1 of 2 - PCV) 2003 PAP SMEAR 2005 HPV VACCINE (1 - 3-dose SCDM series) 2011 COVID-19 VACCINE ( season) 2024 01/06/2021, 12/15/2020 MAMMOGRAM 02/21/2025 02/21/2023 INFLUENZA VACCINE (#1) 2025 4, 08/21/2021, 09/06/2020 SCREENING FOR DIABETES 03/11/2028 5, 02/04/2025, 02/04/2025, Additional history exists ZOSTER VACCINE (1 of 2) 2034 HEPATITIS C SCREENING Completed 06/12/2021 DEPRESSION SCREENING Completed 05/11/2025 HIB VACCINE Aged Out No longer eligi ble based on patient's age to complete this topic MENINGOCOCCAL (Group B) VACCINE SHARED DECISION-MAKING Aged Out No longer eligible based on patient's age to complete this topic MENINGOCOCCAL GROUPS A/C/Y/W VACCINE Aged Out No longer eligible based on patient's age to complete this topic Procedures Procedure Name Priority Date/Time Associated Diagnosis Comments DERMATOPATHOLOGY Routine 05/03/2025 12:0 0 AM CDT CYCLIC CITRULLINATED PEPTIDE(CCP) AB IGG Routine 03/11/2025 3:06 PM CDT Polyarthralgia VASQUEZ PANEL COMPREHENSIVE Routine 03/11/20 3:06 PM CDT Polyarthralgia HLA TYPING B27 Routine 03/11/2025 3:05 PM CDT Polyarthralgia CK BLOOD Routine 03/11/2025 3:04 PM CDT Polyarthralgia C-REACTIVE PROTEIN Routine 03/11/2025 3: 04 PM CDT Polyarthralgia ERYTHROCYTE SEDIMENTATION RATE Routine 03/11/2025 3:04 PM CDT Polyarthralgia COMPREHENSIVE METABOLIC PANEL Routine 03/11/2025 3:04 PM CDT Polyarthralgia CBC W AUTO DIFFERENTIAL Routine 03/11/20 3:04 PM CDT Polyarthralgia RHEUMATOID FACTOR BLOOD QUANTITATIVE Routine 03/11/2025 3:04 PM CDT Polyarthralgia COMPLEMENT C3 C4 PANEL Routine 3:04 PM CDT Polyarthralgia VASQUEZ BLOOD SCREEN W/REFLEX TITER Routine 03/11/2025 3:04 PM CDT Polyarthralgia XR SI JOINTS 3VW OR MORE Routine 025 2:59 PM CDT Low back pain, unspecified back pain laterality, unspecified chronicity, unspecified whether sciatica present XR PELVIS W BILAT HIP 2VW Routine 03/11/2025 2:58 PM CDT Low back pain, unspecified back pain laterality, unspecified chronicity, unspecified whether sciatica present XR LUMBAR SPINE 2 OR 3VW Routine 025 2:58 PM CDT Low back pain, unspecified back pain laterality, unspecified chronicity, unspecified whether sciatica present from Last 3 Months Results * DERMATOPATHOLOGY (05/03/2025 12:00 AM CDT) Case Report Dermatopathology Report Case: [id number] Authorizing Provider: Robin Downey MD Collected: 05/03/2025 12:00 AM Ordering Location: [facility] - Received: 05/06/2025 10:43 AM DermPath Lab Pathologist: Kenia Del Cid MD Specimen: Skin, left vargas 10:54 AM CDT DERMATOPATHOLOGY LABORATORY Final Diagnosis Specimen A. SKIN, left vargas: INTRADERMAL MELANOCYTIC NEVUS (D22.72) 10:54 AM CDT DERMATOPATHOLOGY LABORATORY at 1054 CDT Clinical History Atypical Nevus 10:54 AM CDT DERMATOPATHOLOGY LABORATORY Gross Description Specimen A: Received is one formalin filled container labeled with the patient's name and designated left vargas. The specimen consists of a shave biopsy measuring 4x3x1 mm. Jar 0. 10:54 AM CDT DERMATOPATHOLOGY LABORATORY Microscopic Description Specimen A. SKIN, left vargas: There are nests of cytologically bland melanocytes within the dermis that mature with depth. 10:54 AM CDT DERMATOPATHOLOGY LABORATORY Disclaimer An external and internal positive and negative controls are appropriate for the histochemical, immunohistochemical and immunofluorescence stain(s) in this case (if any), except where stated explicitly. The performance characteristics of the stain(s) cited in this report were developed and its performance characteristic determined by the Dermatopathology Laboratory at [facility], directed by Dr. Jorge Felix. These tests need not be, and therefore are not, approved by the [place] Food and Drug Administration. The tests are used for clinical purposes. Billing Codes Specimen Charges Stain Charges 47868 1 10:54 AM CDT DERMATOPATHOLOGY LABORATORY Embedded Images 10:54 AM CDT DERMATOPATHOLOGY LABORATORY Pathology/Cytolog y TISSUE SPECIMEN FROM SKIN / Unknown 05/03/2025 05/06/2025 10:43 AM CDT Robin Downey MD LAB - PATHOLOGY/CYTOLOGY RY ÁNGEL Final Result DERMATOPATHOLOGY LABORATORY [facility] Department of Dermatology [address], [address] [phone] * VASQUEZ PANEL COMPREHENSIVE (03/11/2025 3:06 PM CDT) Anti-dsDNA Quantitative <1 0 - 9 IU/mL [facility] ACCOUNT BILL Comment: Negative <5 Equivocal 5 - 9 Positive >9 CHUTE TENDER Antibody 0.8 0.0 - 0.9 AI [facility] [...] ACCOUNT BILL See Below Comment [facility] ACCOUNT BILL Comment: Autoantibody Disease Association Condition Frequency --------- Antinuclear Antibody, SLE, mixed connective Direct (VASQUEZ-D) tissue diseases --------- dsDNA SLE 40 - 60% --------- Chromatin Drug induced SLE 90% SLE 48 - 97% --------- SSA (Ro) SLE 25 - 35% Sjogren's Syndrome 40 - 70% Lupus 100% --------- SSB (La) SLE 10% Sjogren's Syndrome 30% --------- Sm (anti-Lees) SLE 15 - 30% --------- CHUTE TENDER Mixed Connective Tissue Disease 95% (U1 nRNP, [...] - 03/14/2025 11:10 AM CDT Performed at: 01 - [address] [id number] Kitchen Utility Associate: Lele Higginbotham PhD, Phone: [phone] Isis Hassan MD LAB - SEROLOGY ORDERABLES Final Result Performing Organization Address [facility] de Phone Number [facility] ACCOUNT BILL [address] [place] [address] * CYCLIC CITRULLINATED PEPTIDE(CCP) AB IGG (03/11/2025 3:06 PM CDT) [facility] CCP Antibodies IgG/IgA <20 <20 Units [facility] ACCOUNT BILL Comment: Negative: <20 Weak Positive: 20-39 Moderate Positive: 40-59 Strong Positive: >59 Blood BLOOD SPECIMEN / Unknown 03/11/2025 3:06 PM CDT 03/11/2025 Narrative [facility] ACCOUNT BILL - 03/20/2025 9:07 PM CDT Performed at: [address] [employer] [address] [place] [id number] Kitchen Utility Associate: Narciso Novak MD, Phone: [phone] Isis Hassan MD LAB - CHEMISTRY ORDERABLES Final Result Performing Organization Address [facility] Co de Phone Number [facility] ACCOUNT BILL [address] [place] [address] * HLA TYPING B27 (03/11/2025 3:05 PM CDT) HLA-B27 Negative [facility] ACCOUNT BILL Comment: HLA-B*27 Negative B27 allele interpretation for all loci based on IMGT/HLA database version 3.58 This test was developed and its performance characteristics determined by [facility]. It has not been cleared or approved by the Food and Drug Administration. The FDA has determined that such clearance or approval is not necessary. [facility] Lab CLIA ID Number [id number] HISTOCOMPATIBILITY SECTION DIRECTOR: Maggie Ellis, PhD, F([facility]) This test was performed using Polymerase Chain Reaction (PCR) and Sequence Specific Oligonucleotide Probes (SSOP) technique. Sequence Based Typing (SBT) may be used as a supplemental method when necessary. If you have questions, please call HLA auctionpointer service at or email at [email or web address]. Blood BLOOD SPECIMEN / Unknown 03/11/2025 3:05 PM CDT 03/11/2025 Narrative [facility] ACCOUNT BILL - 03/23/2025 6:09 PM CDT Performed at: [address] [id number] Kitchen Utility Associate: Lou Vargas PhD, Phone: [phone] Isis Hassan MD LAB - CHEMISTRY ORDERABLES Final Result [facility] ACCOUNT BILL [address] [place] [address] * RHEUMATOID FACTOR BLOOD QUANTITATIVE (03/11/2025 3:04 PM CDT) Rheumatoid Factor <10.0 <14.0 IU/mL [facility] ACCOUNT BILL Blood BLOOD SPECIMEN / Unknown 03/11/2025 3:04 PM CDT 03/11/2025 Narrative [facility] ACCOUNT BILL - 03/12/2025 9:10 AM CDT Performed at: [address] [id number] Kitchen Utility Associate: Lele Higginbotham PhD, Phone: [phone] Isis Hassan MD LAB - CHEMISTRY ORDERABLES Final Result Performing Organization Address [facility] Co de Phone Number [facility] ACCOUNT BILL [address] [place] [address] * C-REACTIVE PROTEIN (03/11/2025 3:04 PM CDT) Pathologist [facility] C-Reactive Protein 1 0 - 10 mg/L [facility] ACCOUNT BILL Blood BLOOD SPECIMEN / Unknown 03/11/2025 3:04 PM CDT 03/11/2025 Narrative [facility] ACCOUNT BILL - 03/12/2025 9:10 AM CDT Performed at: - [address] [id number] Kitchen Utility Associate: Lele Higginbotham PhD, Phone: [phone] Isis Hassan MD LAB - CHEMISTRY ORDERABLES Final Result Performing Organization Address [facility] de Phone Number [facility] ACCOUNT BILL [address] [place] [address] * VASQUEZ BLOOD SCREEN W/REFLEX TITER (03/11/2025 3:04 PM CDT) [facility] VASQUEZ Negative [facility] ACCOUNT BILL Comment: Negative <1:80 Borderline 1:80 Positive >1:80 ICAP nomenclature: AC-0 For more information about Hep-2 cell patterns use ANApatterns.org, the official website for the International Consensus on Antinuclear Antibody (VASQUEZ) Patterns (ICAP). Blood BLOOD SPECIMEN / Unknown 03/11/2025 3:04 PM CDT 03/11/2025 Narrative [facility] ACCOUNT BILL - 03/15/2025 3:09 PM CDT Performed at: - [address] [id number] Kitchen Utility Associate: Lele Higginbotham PhD, Phone: [phone] Isis Hassan MD LAB - CHEMISTRY ORDERABLES Final Result Performing Organization Address [facility] Co de Phone Number [facility] ACCOUNT BILL [address] [place] [address] * ERYTHROCYTE SEDIMENTATION RATE (03/11/2025 3:04 PM CDT) Pathologist [facility] Erythrocyte Sedimentation Rate Westergren 11 0 - 32 mm/hr [facility] ACCOUNT BILL Blood BLOOD SPECIMEN / Unknown 03/11/2025 3:04 PM CDT 03/11/2025 Narrative [facility] ACCOUNT BILL - 03/12/2025 7:09 AM CDT Performed at: - [facility] [address] [id number] Kitchen Utility Associate: Lele Higginbotham PhD, Phone: [phone] Isis Hassan MD LAB - HEMATOLOGY ORDERABLES Connie barrios Result [facility] ACCOUNT BILL [address] [place] [address] * (ABNORMAL) CBC WITH DIFFERENTIAL (03/11/2025 3:04 PM CDT) Pathologist [facility] WBC 10.1 3.4 - 10.8 x10E3/uL [facility] [...] 03/12/2025 7:09 AM CDT Performed at: [address] [id number] Kitchen Utility Associate: Lele Higginbotham PhD, Phone: [phone] Isis Hassan MD LAB - HEMATOLOGY ORDERABLES Connie l Result [facility] ACCOUNT BILL [address] [place] [address] * COMPREHENSIVE METABOLIC PANEL (03/11/2025 3:04 PM [...] - 03/12/2025 7:09 AM CDT Performed at: - [address] [id number] Kitchen Utility Associate: Lele Higginbotham PhD, Phone: [phone] Isis Hassan MD LAB - CHEMISTRY ORDERABLES Final Result Performing Organization Address [facility]/ZIP Co de Phone Number [facility] ACCOUNT BILL [address] [place] [address] * CK BLOOD (03/11/2025 3:04 PM CDT) CK 65 32 - 182 U/L [facility] ACCOUNT BILL Blood BLOOD SPECIMEN / Unknown 03/11/2025 3:04 PM CDT 03/11/2025 Narrative [facility] ACCOUNT BILL - 03/12/2025 8:11 AM CDT Performed at: - [facility] [id number] Kitchen Utility Associate: Lele Higginbotham PhD, Phone: [phone] Isis Hassan MD LAB - CHEMISTRY ORDERABLES Final Result Performing Organization Address [facility]/ZIP Co de Phone Number [facility] ACCOUNT BILL [address] [place] [address] * COMPLEMENT C3 C4 PANEL (03/11/2025 3:04 PM CDT) Complement C3 104 82 - 167 mg/dL [facility] ACCOUNT BILL Complement C4 20 12 - 38 mg/dL [facility] ACCOUNT BILL Blood BLOOD SPECIMEN / Unknown 03/11/2025 3:04 PM CDT 03/11/2025 Narrative [facility] ACCOUNT BILL - 03/12/2025 9:10 AM CDT Performed at: 01 - [facility] [address] [place], [place] [id number] Kitchen Utility Associate: Lele Higginbotham PhD, Phone: [phone] Isis Hassan MD LAB - CHEMISTRY ORDERABLES Final Result [facility] ACCOUNT BILL [address] [place] [address] * XR SI Joints 3Vw or More [...] Adam Ortega MD on 03/11/2025 3:08 PM us Isis Hassan MD DIAGNOSTIC IMAGING ORDERABLES Fi [...] intrauterine device is noted. > Interpreting Provider: Adma Ortega MD on 03/11/2025 3:08 PM Procedure [...] nal Result from Last 3 Months [facility] Care Teams Neurodiagnostic Tech Relationship Specialty Start Date End Date Celestina Overton, ENGINEERING DESIGNER-SANDAL PARTS ASSEMBLER [address] [place] [address] PCP - General Nurse Practitioner Family 03/11/25
--- OUTSIDE RECORDS SUMMARY | 2025-06-07 10:44 | XMS_ITS | Encounter Summary ---
Author Organization [facility] Address [address] [place] [address] Care Team Providers Care Computerized Machine Fabric Cutter Name Role Phone Celestina Overton WIRE WELDER-BACKUP OPERATOR Primary Care Provider Encounter Details Date Type Department Care Team (Late Contact Info) Description 05/06/2025 Lab Requisition [facility] - DermPath Lab [address] [facility] [place] [address] Robin Downey MD [facility] DERMATOLOGY [address] [place] [phone] Social History Tobacco Use Types Packs/Day [...] Department Care Team (Late Contact Info) Description 07/21/2025 7:30 AM CDT Appointment [facility]FT [address] [place] [address] 11/10/2025 3:30 PM GAUGE AND WEIGH MACHINE OPERATOR Office Visit [facility] - Allergy [address] [facility], [place] [address] Mike Callaway MD [address] [place] [address] DIV [place] ALLERGY/[place] [address] documented as of this encounter Procedures Procedure Name Priority Date/Time Associated Diagnosis Comments DERMATOPATHOLOGY Routine 05/03/2025 12:0 0 AM CDT documented in this encounter Results * DERMATOPATHOLOGY (05/03/2025 12:00 AM CDT) Case Report Dermatopathology Report Case: [id number] Authorizing Provider: Robin Downey MD Collected: 05/03/2025 12:00 AM Ordering Location: [facility] - Received: 05/06/2025 10:43 [...] characteristic determined by the Dermatopathology Laboratory at [facility], directed by Dr. Jorge Felix. These tests need not be, and therefore are not, approved by the [place] Food and Drug Administration. The tests are used for clinical purposes. Billing Codes Specimen Charges Stain Charges 77299 1 10:54 AM CDT DERMATOPATHOLOGY LABORATORY Embedded Images 10:54 AM CDT DERMATOPATHOLOGY LABORATORY Pathology/Cytolog y TISSUE SPECIMEN FROM SKIN / Unknown 05/03/2025 05/06/2025 10:43 AM CDT us Robin Downey MD LAB - PATHOLOGY/CYTOLOGY RY NEAL Final Result DERMATOPATHOLOGY LABORATORY [facility] - Department of Dermatology [address] [phone] documented in this encounter Visit Diagnoses Not on filedocumented in this encounter Care Teams Computerized Machine Fabric Cutter Relationship Specialty Start Date End Date Celestina Overton, WIRE WELDER-BACKUP OPERATOR [address] [place] [address] PCP - General Nurse Practitioner Family 03/11/25 documented as of this encounter
== END 2025-06-07 10:18 | disposition home or self-care (01) ==
LOC: ANHIMG 10:18
PROVIDERS: PCP Nurse Practitioner Family; Visit Provider Obstetrics & Gynecology
DX: R92.8 Other abnormal and inconclusive findings on diagnostic imaging of breast (principal); N60.01 Solitary cyst of right breast
CPT/HCPCS: 76642; 77061; 77065; G0279